=== PATIENT | female | born 1970 | race Caucasian/White ===

== ENCOUNTER 2016-11-21 21:33 | Emergency (ER) | payer MEDICAID ==
[2016-11-21 22:13] VITALS: BP 142/98
[2016-11-21] MEDS ORDERED: cefTRIAXone 1 GM Vial IM ONE (23:11)
[2016-11-21] MEDS ORDERED: Ketorolac 30 MG/ML SDV IM ONE (23:12)
--- NOTE | 2016-11-21 23:18 | EDM.PDOC ---
ED HPI GENERAL MEDICAL PROBLEM - General Chief Complaint: Skin Complaint Stated Complaint: INFECTION Time Seen by Provider: 11/21/16 23:14 Source of Information: Reports: Patient History Limitations: Reports: No Limitations - History of Present Illness INITIAL COMMENTS - FREE TEXT/NARRATIVE: Pt with piercing to her ear several months ago. Took out the piercing last week. Noted sudden swelling and redness to her tragus area yesterday. Went to urgent care and was given Keflex. She feels like swelling has gotten worse. Is taking Ibuprofen, using sea salt soaks to area also. Pain is quite intense. She has noted chills today. 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 Left Ear Pain Score (Numeric/FACES): 6 - Related Data Allergies Allergy/AdvReac Type Severity Reaction Status Date / Time lamotrigine [From Lamictal] Allergy Rash Verified 11/21/16 22:46 Home Meds: Home Meds cloNIDine [Catapres] 0.1 mg PO DAILY 09/29/13 [History] Omeprazole [Prilosec] 40 mg PO DAILY 12/20/13 [History] Venlafaxine HCl [Venlafaxine ER] 150 mg PO DAILY 10/22/15 [History] Cephalexin [Keflex] 500 mg PO QID 11/21/16 [History] Topiramate [Topamax] 50 mg PO DAILY 11/21/16 [History] Past Medical History HEENT History: Reports: Impaired Vision Cardiovascular History: Reports: None Respiratory History: Reports: None Gastrointestinal History: Reports: GERD Genitourinary History: Reports: None TECHNICAL LEAD History: Reports: , Spontaneous Musculoskeletal History: Reports: None Neurological History: Reports: None Psychiatric History: Reports: Anxiety, Bipolar, Depression Endocrine/Metabolic History: Reports: None Hematologic History: Reports: None Immunologic History: Reports: None Oncologic (Cancer) History: Reports: None Dermatologic History: Reports: Psoriasis - Infectious Disease History Infectious Disease History: Reports: Chicken Pox - Past Surgical History HEENT Surgical History: Reports: None Cardiovascular Surgical History: Reports: None Respiratory Surgical History: Reports: None GI Surgical History: Reports: None Female Surgical History: Reports: D&C, Hysterectomy Endocrine Surgical History: Reports: None Neurological Surgical History: Reports: None Musculoskeletal Surgical History: Reports: Arthroscopic Knee, Arthroscopic Procedure, Shoulder Surgery Oncologic Surgical History: Reports: None Dermatological Surgical History: Reports: None Social & Family History - Family History Family Medical History: Noncontributory - Tobacco Use Smoking Status *Q: Current Every Day Smoker Years of Tobacco use: 30 Packs/Tins Daily: 0.5 Used Tobacco, but Quit: No Second Hand Smoke Exposure: No - Caffeine Use Caffeine Use: Reports: Coffee, Tea - Alcohol Use Days Per Week of Alcohol Use: 0 - Recreational Drug Use Recreational Drug Use: No ED ROS GENERAL - Review of Systems Review Of Systems: See Below Constitutional: Reports: Chills HEENT: Reports: Ear Pain Respiratory: Reports: No Symptoms Cardiovascular: Reports: No Symptoms Endocrine: Reports: No Symptoms GI/Abdominal: Reports: No Symptoms Musculoskeletal: Reports: No Symptoms Skin: Reports: Other (left ear with redness, swelling and warmth) ED EXAM, SKIN/RASH Exam: See Below Exam Limited By: No Limitations General Appearance: Alert, WD/WN, No Apparent Distress Ears: Other (left tragus region with extreme swelling, redness and warmth, tender to touch) Head: Atraumatic, Normocephalic Neck: Normal Inspection, Supple, Non-Tender, Full Range of Motion Respiratory/Chest: No Respiratory Distress, Lungs Clear, Normal Breath Sounds, No Accessory Muscle Use, Chest Non-Tender Cardiovascular: Normal Peripheral Pulses, Regular Rate, Rhythm, No Edema, No Gallop, No JVD, No Murmur, No Rub Course - Vital Signs Last Recorded V/S: Last Vital Signs Temp 97.5 F 11/21/16 22:11 Pulse 104 H 11/21/16 22:11 Resp 20 11/21/16 22:11 BP 142/98 H 11/21/16 22:11 Pulse Ox 97 11/21/16 22:11 - Orders/Labs/Meds Labs: Laboratory Tests 11/21/16 Range/Units 23:11 WBC 9.7 (4.5-11.0) K/uL RBC 5.02 (3.30-5.50) M/uL Hgb 14.3 D (12.0-15.0) g/dL Hct 41.5 (36.0-48.0) % MCV 83 (80-98) fL MCH 29 (27-31) pg MCHC 35 (32-36) % Plt Count 250 (150-400) K/uL Neut % (Auto) 57 (36-66) % Lymph % (Auto) 31 (24-44) % [place] % (Auto) 9 H (2-6) % Eos % (Auto) 3 (2-4) % Baso % (Auto) 1 (0-1) % Meds: Medications Discontinued Medications Generic Name Dose Route Start Last Admin Trade Name Tez PRN Reason Stop Dose Admin Ceftriaxone Sodium 1 gm 11/21/16 23:11 11/21/16 23:25 Rocephin IM 11/21/16 23:12 1 gm ONETIME ONE Administration Ketorolac Tromethamine 30 mg 11/21/16 23:12 11/21/16 23:22 Toradol IM 11/21/16 23:13 30 mg ONETIME ONE Administration Lidocaine HCl 5 ml 11/21/16 23:12 11/21/16 23:27 Xylocaine-Mpf 1% INJECT 11/21/16 23:13 5 ml ONETIME ONE Administration Departure - Departure Time of Disposition: 23:29 Disposition: Home, Self-Care 01 Condition: Good Clinical Impression: Cellulitis of helix of left ear - Discharge Information Referrals: Lori Pham THREADER [Primary Care Provider] - Forms: ED Department Discharge Additional Instructions: CBC WNL. Rocephin 1gm IM given. Ketorolac 30mg IM given. Pt to increase heat to area as most likely it will rupture and drain soon. To continue Ibuprofen as needed for pain. Will switch to Bactrim DS 1 tab BID x 10 days to rule out resistant infection. Pt to stop Keflex. Followup if spikes a fever or with worsening symptoms. - Problem List & Annotations (1) Cellulitis of helix of left ear SNOMED Code(s): 02908328 Code(s): H60.12 - CELLULITIS OF LEFT EXTERNAL EAR Status: Acute Priority : Medium Current Visit: Yes
== END 2016-11-21 23:47 | disposition home or self-care (01) ==
LOC: JP.ED 21:33
DX: H60.12 Cellulitis of left external ear (principal); F17.210 Nicotine dependence, cigarettes, uncomplicated; K21.9 Gastro-esophageal reflux disease without esophagitis; F31.9 Bipolar disorder, unspecified; F41.9 Anxiety disorder, unspecified; Z98.890 Other specified postprocedural states; Z90.710 Acquired absence of both cervix and uterus; Z79.899 Other long term (current) drug therapy; Z88.8 Allergy status to other drugs, medicaments and biological substances
CPT/HCPCS: 36415; 85025; 96372; 99282; J0696; J1885

== ENCOUNTER 2020-11-12 20:25 | Inpatient (IN) | payer MEDICAID ==
--- NOTE | 2020-11-12 20:42 | EDM.PDOC ---
ED HPI GENERAL MEDICAL PROBLEM - General Chief Complaint: Abdominal Pain Stated Complaint: MEDICAL VIA [facility] Time Seen by Provider: 11/12/20 20:32 Source of Information: Reports: Patient, EMS History Limitations: Reports: No Limitations - History of Present Illness INITIAL COMMENTS - FREE TEXT/NARRATIVE: Bridgette is a 50-year-old female presenting to the ED for evaluation of severe periumbilical abdominal pain for 2 hours after eating [employer] in [place], [place] around 530 today. Patient has some nausea but denies any vomiting. She has severe unrelenting pain radiating through to the back. She still has her gallbladder. She does not know her past medical family history because she was adopted. Patient states that she was having chills, diaphoresis, severe abdominal cramping but denies any diarrhea or constipation. She has had previous episodes of abdominal pain but they have not been able to find a source. umbilical abd pain Pain Score (Numeric/FACES): 7 - Related Data Allergies Allergy/AdvReac Type Severity Reaction Status Date / Time lamotrigine [From Lamictal] Allergy Rash Verified 11/12/20 20:58 Home Meds: Home Meds cloNIDine [Catapres] 0.1 mg PO DAILY 09/29/13 [History] Omeprazole [Prilosec] 40 mg PO DAILY 12/20/13 [History] Venlafaxine HCl [Venlafaxine ER] 150 mg PO DAILY 10/22/15 [History] Past Medical History HEENT History: Reports: Impaired Vision Cardiovascular History: Reports: None Respiratory History: Reports: None Gastrointestinal History: Reports: GERD Genitourinary History: Reports: None 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: , 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 Musculoskeletal History: Reports: None Neurological History: Reports: None Psychiatric History: Reports: Anxiety, Bipolar, Depression Endocrine/Metabolic History: Reports: None Hematologic History: Reports: None Immunologic History: Reports: None Oncologic (Cancer) History: Reports: None Dermatologic History: Reports: Psoriasis - Infectious Disease History Infectious Disease History: Reports: Chicken Pox - Past Surgical History HEENT Surgical History: Reports: None Cardiovascular Surgical History: Reports: None Respiratory Surgical History: Reports: None GI Surgical History: Reports: None Female Surgical History: Reports: D&C, Hysterectomy Endocrine Surgical History: Reports: None Neurological Surgical History: Reports: None Musculoskeletal Surgical History: Reports: Arthroscopic Knee, Arthroscopic Procedure, Shoulder Surgery Oncologic Surgical History: Reports: None Dermatological Surgical History: Reports: None Social & Family History - Family History Family Medical History: No Pertinent Family History - Caffeine Use Caffeine Use: Reports: Coffee, Tea ED ROS GENERAL - Review of Systems Review Of Systems: See Below Constitutional: Reports: Chills, Diaphoresis HEENT: Reports: No Symptoms Respiratory: Reports: No Symptoms Cardiovascular: Reports: No Symptoms Endocrine: Reports: No Symptoms GI/Abdominal: Reports: Abdominal Pain, Nausea : Reports: No Symptoms Musculoskeletal: Reports: Back Pain Skin: Reports: No Symptoms Neurological: Reports: No Symptoms Psychiatric: Reports: No Symptoms Hematologic/Lymphatic: Reports: No Symptoms Immunologic: Reports: No Symptoms ED EXAM, GI/ABD - Physical Exam Exam: See Below Exam Limited By: No Limitations General Appearance: Alert, Anxious, Severe Distress Eyes: Bilateral: EOMI Throat/Mouth: Normal Inspection, Normal Lips, Normal Oropharynx, Normal Voice, No Airway Compromise Head: Atraumatic, Normocephalic Neck: Normal Inspection, Supple, Non-Tender, Full Range of Motion Respiratory/Chest: No Respiratory Distress, Lungs Clear, Normal Breath Sounds Cardiovascular: Normal Peripheral Pulses, Regular Rate, Rhythm, No Murmur GI/Abdominal Exam: Soft, No Distention, Guarding, Rebound, Tender (Severe diffuse tenderness), Abnormal Bowel Sounds (Diminished bowel sounds). No: Rigid Back Exam: Normal Inspection, Full Range of Motion Extremities: Normal Inspection, Normal Range of Motion Neurological: Alert, Oriented, Normal Cognition, No Motor/Sensory Deficits Psychiatric: Normal Affect, Anxious Skin Exam: Warm, Dry, Diaphoretic Lymphatic: No Adenopathy Course - Vital Signs Last Recorded V/S: Last Vital Signs Temp 36.2 C 11/12/20 21:10 Pulse 69 11/12/20 21:10 Resp 18 11/12/20 21:10 BP 128/86 11/12/20 21:10 Pulse Ox 99 11/12/20 21:10 - Orders/Labs/Meds Orders: Active Orders 24 hr Category Date Time Status Sodium Chloride 0.9% [Normal Saline] 1,000 ml Med 11/12/20 21:00 Active IV ASDIRECTED Sodium Chloride 0.9% [Normal Saline] 89 ml Med 11/12/20 22:15 Active IV ASDIRECTED Sodium Chloride 0.9% [Saline Flush] Med 11/12/20 20:47 Active 10 ml FLUSH ASDIRECTED PRN Saline Lock Insert [OM.PC] Routine Oth 11/12/20 20:47 Ordered Medication Orders Sodium Chloride (Normal Saline) 1,000 mls @ 999 mls/hr IV ASDIRECTED LIMA Last Admin: 11/12/20 21:02 Dose: 999 mls/hr Documented by: ALEXANDRE Sodium Chloride (Normal Saline) 89 mls @ 3.5 mls/sec IV ASDIRECTED LIMA Last Admin: 11/12/20 22:18 Dose: 3.5 mls/sec Documented by: BUSTER Sodium Chloride (Sodium Chloride 0.9% 10 Ml Syringe) 10 ml FLUSH ASDIRECTED PRN PRN Reason: Keep Vein Open Last Admin: 11/12/20 20:57 Dose: 10 ml Documented by: ALEXANDRE Labs: Laboratory Tests 11/12/20 11/12/20 Range/Units 20:58 20:58 WBC 26.0 H (4.5-11.0) K/uL RBC 5.84 H (3.30-5.50) M/uL Hgb 15.8 H (12.0-15.0) g/dL Hct 47.7 (36.0-48.0) % MCV 82 (80-98) fL MCH 27 (27-31) pg MCHC 33 (32-36) % Plt Count 356 (150-400) K/uL Neut % (Auto) 80.0 H (36-66) % Lymph % (Auto) 13.1 L (24-44) % [place] % (Auto) 6.0 (2-6) % Eos % (Auto) 0.7 L (2-4) % Baso % (Auto) 0.2 (0-1) % Sodium 140 (140-148) mmol/L Potassium 4.0 (3.6-5.2) mmol/L Chloride 102 (100-108) mmol/L Carbon Dioxide 28 (21-32) mmol/L Anion Gap 9.8 (5.0-14.0) mmol/L BUN 14 (7-18) mg/dL Creatinine 1.0 (0.6-1.0) mg/dL Est Cr Clr Drug Dosing 56.91 mL/min Estimated GFR (MDRD) 59 L (>60) Glucose 183 H (74-106) mg/dL Calcium 9.1 (8.5-10.1) mg/dL Total Bilirubin 0.6 D (0.2-1.0) mg/dL AST 23 (15-37) U/L ALT 44 (12-78) U/L Alkaline Phosphatase 137 H (46-116) U/L Total Protein 7.0 (6.4-8.2) g/dL Albumin 3.6 (3.4-5.0) g/dL Globulin 3.4 (2.3-3.5) g/dL Albumin/Globulin Ratio 1.1 L (1.2-2.2) Lipase 67047 H (73-393) U/L Meds: Medications Generic Name Dose Route Start Last Admin Trade Name Tez PRN Reason Stop Dose Admin Sodium Chloride 1,000 mls @ 999 mls/hr 11/12/20 21:00 11/12/20 21:02 Normal Saline IV 999 mls/hr ASDIRECTED LIMA Administration Sodium Chloride 89 mls @ 3.5 mls/sec 11/12/20 22:15 11/12/20 22:18 Normal Saline IV 3.5 mls/sec ASDIRECTED LIMA Administration Sodium Chloride 10 ml 11/12/20 20:47 11/12/20 20:57 Sodium Chloride 0.9% 10 Ml Syringe FLUSH 10 ml ASDIRECTED PRN Administration Keep Vein Open Discontinued Medications Generic Name Dose Route Start Last Admin Trade Name Tez PRN Reason Stop Dose Admin Hydromorphone HCl 1 mg 11/12/20 21:50 11/12/20 21:56 Hydromorphone 1 Mg/Ml Syringe IVPUSH 11/12/20 21:51 1 mg ONETIME ONE Administration Hydromorphone HCl 0.5 mg 11/12/20 22:24 Hydromorphone 0.5 Mg/0.5 Ml Syringe IVPUSH 11/12/20 22:25 ONETIME ONE Iopamidol 150 ml 11/12/20 22:05 11/12/20 22:18 Iopamidol 612 Mg/Ml 500 Ml Multipack Bottle IV 11/12/20 22:06 150 ml ONETIME ONE Administration Ketorolac Tromethamine 30 mg 11/12/20 20:47 11/12/20 21:02 Ketorolac 30 Mg/Ml Sdv IVPUSH 11/12/20 20:48 30 mg ONETIME ONE Administration Ondansetron HCl 4 mg 11/12/20 20:47 11/12/20 21:02 Ondansetron 4 Mg/2 Ml Sdv IVPUSH 11/12/20 20:48 4 mg ONETIME ONE Administration Ondansetron HCl 4 mg 11/12/20 22:43 Ondansetron 4 Mg/2 Ml Sdv IVPUSH 11/12/20 22:44 ONETIME ONE Sodium Chloride 10 ml 11/12/20 22:05 11/12/20 22:18 Sodium Chloride 0.9% 10 Ml Syringe FLUSH 11/12/20 22:06 10 ml ONETIME ONE Administration - Radiology Interpretation Free Text/Narrative:: I reviewed the CT of the abdomen and pelvis imaging and the report: There is moderate retroperitoneal edema present in the upper abdomen surrounding the pancreas, duodenum, and gastric antrum. This fluid extends anteriorly into the transverse mesocolon. Finding most likely consistent with pancreatitis. There is mild wall thickening of the stomach present which may be due to secondary inflammatory changes from the suspected pancreatitis. - Re-Assessments/Exams Free Text/Narrative Re-Assessment/Exam: 11/12/20 22:36 reviewed the patient's labs showing a leukocyte count of 26.0 with 80% neutrophils, hemoglobin of 15.8 with a hematocrit of 47.7 and a platelet count of 356,000. Her comprehensive metabolic panel is significant for sodium 140, potassium 4.0, chloride of 102, bicarbonate of 28, BUN of 14 with a creatinine 1.0 and a glucose of 183. Calcium is 9.1, total bili is 0.6, AST is 23 with an ALT of 44 and alkaline phosphatase of 137. [place] [address]. The patient underwent a CT of the abdomen and pelvis with IV contrast demonstrating severe inflammation of the pancreas with free fluid and inflammation throughout the upper abdomen. Patient is required a fair amount of Dilaudid to get her pain under control. It is likely that this is idiopathic pancreatitis as her liver enzymes and total bilirubin are negative. There is no sign for stones on the CT of the abdomen and pelvis. More worrisome is the significant leukocytosis of 26,000 with a left shift. 11/12/20 22:[address] of the abdomen and pelvis shows moderate retroperitoneal edema present in the upper abdomen surrounding the pancreas, duodenum, gastric antrum with the fluid extending anteriorly into the transverse mesocolon. This is consistent with an acute pancreatitis. The patient will need continued IV hydration and pain control. I will arrange for her to be admitted to the hospital. I will talk to Kaye Perez CNP to arrange for this admission. Departure - Departure Time of Disposition: 22:53 Disposition: Admitted As Inpatient 68 Clinical Impression: Acute pancreatitis Qualifiers: Pancreatitis type: idiopathic Acute pancreatitis complication: unspecified Qualified Code(s): K85.00 - Idiopathic acute pancreatitis without necrosis or infection - Discharge Information Referrals: PCP,None [Primary Care Provider] - Forms: ED Department Discharge Sepsis Event Note (ED) - Focused Exam Vital Signs: Vital Signs Temp Pulse Resp BP Pulse Ox 11/12/20 21:10 36.2 C 69 18 128/86 99 - Problem List & Annotations (1) Acute pancreatitis SNOMED Code(s): 701347718 Code(s): K85.90 - ACUTE PANCREATITIS WITHOUT NECROSIS OR INFECTION, UNSP Status: Acute Priority: High Current Visit: Yes Qualifiers: Pancreatitis type: idiopathic Acute pancreatitis complication: unspecified Qualified Code(s): K85.00 - Idiopathic acute pancreatitis without necrosis or infection - Problem List Review Problem List Initiated/Reviewed/Updated: Yes - My Orders Last 24 Hours: My Active Orders 11/12/20 20:47 Sodium Chloride 0.9% [Saline Flush] 10 ml FLUSH ASDIRECTED PRN Saline Lock Insert [OM.PC] Routine 11/12/20 21:00 Sodium Chloride 0.9% [Normal Saline] 1,000 ml IV ASDIRECTED 11/12/20 22:15 Sodium Chloride 0.9% [Normal Saline] 89 ml IV ASDIRECTED - Assessment/Plan Last 24 Hours: My Active Orders 11/12/20 20:47 Sodium Chloride 0.9% [Saline Flush] 10 ml FLUSH ASDIRECTED PRN Saline Lock Insert [OM.PC] Routine 11/12/20 21:00 Sodium Chloride 0.9% [Normal Saline] 1,000 ml IV ASDIRECTED 11/12/20 22:15 Sodium Chloride 0.9% [Normal Saline] 89 ml IV ASDIRECTED
[2020-11-12] MEDS ORDERED: Ondansetron 4 MG/2 ML SDV IVPUSH ONE ×2 (20:47→22:43)
[2020-11-12] MEDS ORDERED: Ketorolac 30 MG/ML SDV IVPUSH ONE (20:47)
[2020-11-12] MEDS ORDERED: Sodium Chloride 0.9% 10 ML Syringe FLUSH PRN (20:47)
[2020-11-12] MEDS ORDERED: Sodium Chloride 0.9% 1,000 ML IV SCH (21:00)
[2020-11-12] MEDS ORDERED: HYDROmorphone 1 MG/ML Syringe IVPUSH ONE (21:50)
[2020-11-12] MEDS ORDERED: Iopamidol 612 MG/ML 500 ML Multipack Bottle IV ONE (22:05)
[2020-11-12] MEDS ORDERED: Sodium Chloride 0.9% 10 ML Syringe FLUSH ONE (22:05)
[2020-11-12] MEDS ORDERED: HYDROmorphone 0.5 MG/0.5 ML Syringe IVPUSH ONE (22:24)
--- NOTE | 2020-11-12 22:49 | CRLCT ---
For Patients: As a result of the Century Cures Act, medical imaging exams and procedure reports are released immediately into your electronic medical record. You may view this report before your referring provider. If you have questions, please contact your health care provider. INDICATION: Abdominal pain TECHNIQUE: CT Abdomen and pelvis with i.v. contrast. Coronal and sagittal reformats were obtained. CONTRAST: 150 mL Isovue 300 COMPARISON: None FINDINGS: Lower chest: Unremarkable. Liver: Unremarkable. Spleen: Unremarkable. Pancreas: No pancreatic necrosis is seen. Gallbladder: Unremarkable. Kidney: Unremarkable. No kidney or ureteral stones or obstruction seen. Adrenal: Unremarkable. Bowel: Mild wall thickening of the stomach is present and may be due to secondary inflammatory changes from suspected pancreatitis. Mild to moderate fluid distention of the stomach is noted. The appendix is normal in appearance and size. Vascular: Unremarkable. Lymph: Unremarkable. Peritoneum: Moderate retroperitoneal edema is present in the upper abdomen surrounding the pancreas, duodenum and gastric antrum. This fluid extends anteriorly into the transverse mesocolon. No pneumoperitoneum is seen. No significant ascites is noted. Pelvis: The patient is status post prior hysterectomy. There is a cyst or follicle present within the left ovary measuring 1.7 cm. Soft tissue: Unremarkable. Bone: Unremarkable for age. IMPRESSIONS: 1. Moderate retroperitoneal edema is present in the upper abdomen surrounding the pancreas, duodenum and gastric antrum. This fluid extends anteriorly into the transverse mesocolon. Findings most likely due to pancreatitis and correlation with serum amylase and lipase levels is recommended. 2. Mild wall thickening of the stomach is present and may be due to secondary inflammatory changes from suspected pancreatitis. Gastritis or peptic ulcer disease cannot be completely excluded. Dictated by Tanner Lopez MD @ 11/12/2020 10:48:07 PM Please note that all CT scans at this facility use dose modulation, iterative reconstruction, and/or weight-based dosing when appropriate to reduce radiation dose to as low as reasonably achievable. Dictated by: Tanner Lopez MD @ 11/12/2020 22:48:13 (Electronically Signed)
[2020-11-12] MEDS: Sodium Chloride 0.9% 1,000 ML IV SCH (23:01)
--- NOTE | 2020-11-12 23:54 | PCM.HP.2 ---
H&P History of Present Illness - General Date of Service: 11/12/20 Admit Problem/Dx: Admission Diagnosis/Problem Admission Diagnosis/Problem Pancreatitis Source of Information: Patient, EMS, Family, Provider, RN History Limitations: Reports: No Limitations - History of Present Illness Initial Comments - Free Text/Narative: Chief complaint: abdominal pain This is a 50 year old female presents to the ER via ambulance with sudden onset of spasm of sharp in abdomen at 5 pm. Bridgette reports she had been well until eating a [employer] at 4 pm. reports sharp pain coming in waves. denies any other health concerns denies use of drugs or alcohol tobacco use 1/2 pack per day x30+ years. Onset of Symptoms: Reports: Today, Sudden Symptom Onset Date: 11/12/20 Symptom Onset Time: 17:00 Duration of Symptoms: Reports: Hour(s):, Waxing/Waning Location: Reports: Abdomen, Radiates to (mid to lower back pain) Quality: Reports: Sharp, Other (pain feels like muscle spasms) Improves with: Reports: Medication Worsens with: Reports: None Associated Symptoms: Reports: Loss of Appetite, Nausea/Vomiting umbilical abd pain Pain Score (Numeric/FACES): 7 - Related Data Allergies/Adverse Reactions: Allergies Allergy/AdvReac Type Severity Reaction Status Date / Time lamotrigine [From Lamictal] Allergy Rash Verified 11/12/20 20:58 Home Medications: Home Meds cloNIDine [Catapres] 0.1 mg PO DAILY 09/29/13 [History] Omeprazole [Prilosec] 40 mg PO DAILY 12/20/13 [History] Venlafaxine HCl [Venlafaxine ER] 150 mg PO DAILY 10/22/15 [History] Past Medical History HEENT History: Reports: Impaired Vision Cardiovascular History: Reports: None Respiratory History: Reports: None Gastrointestinal History: Reports: GERD Genitourinary History: Reports: None [employer] History: Reports: , Spontaneous Musculoskeletal History: Reports: None Neurological History: Reports: Headaches, Chronic Psychiatric History: Reports: Anxiety, Bipolar, Depression Endocrine/Metabolic History: Reports: Obesity/BMI 30+ Hematologic History: Reports: None Immunologic History: Reports: None Oncologic (Cancer) History: Reports: None Dermatologic History: Reports: Psoriasis - Infectious Disease History Infectious Disease History: Reports: Chicken Pox - Past Surgical History HEENT Surgical History: Reports: None GI Surgical History: Reports: None Female Surgical History: Reports: D&C, Hysterectomy Endocrine Surgical History: Reports: None Neurological Surgical History: Reports: None Musculoskeletal Surgical History: Reports: Arthroscopic Knee, Arthroscopic Procedure, Shoulder Surgery Oncologic Surgical History: Reports: None Dermatological Surgical History: Reports: None Social & Family History - Family History Family Medical History: No Pertinent Family History - Tobacco Use Tobacco Use Status *Q: Current Every Day Tobacco User Years of Tobacco use: 30 Packs/Tins Daily: 0.5 - Caffeine Use Caffeine Use: Reports: Coffee - Recreational Drug Use Recreational Drug Use: No - Living Situation & Occupation Living situation: Reports: with Significant Other (Lives with JUANITA Duenas, has 4 children.) Occupation: Unemployed H&P Review of Systems - Review of Systems: Review Of Systems: See Below General: Reports: Decreased Appetite, Other (acute abdominal pain) HEENT: Reports: Glasses Pulmonary: Reports: No Symptoms Cardiovascular: Reports: No Symptoms Gastrointestinal: Reports: Abdominal Pain, Nausea Genitourinary: Reports: No Symptoms Musculoskeletal: Reports: Back Pain Skin: Reports: No Symptoms Psychiatric: Reports: Depression (history of depression-treated with medications) Neurological: Reports: No Symptoms, Headache (history of migraine headaches, none at this time) Hematologic/Lymphatic: Reports: No Symptoms Immunologic: Reports: No Symptoms Exam - Exam Exam: See Below - Vital Signs Vital Signs: Last Vital Signs Temp 97.2 F 11/12/20 21:10 Pulse 69 11/12/20 21:10 Resp 18 11/12/20 21:10 BP 128/86 11/12/20 21:10 Pulse Ox 99 11/12/20 21:10 Weight: 280 lb - Exam Quality Assessment: DVT Prophylaxis General: Alert, Oriented, Cooperative, Mild Distress HEENT: PERRLA, Conjunctiva Clear, EACs Clear, EOMI, Hearing Intact, Mucosa Moist & [employer], Nares Patent, Normal Nasal Septum, Posterior Pharynx Clear, TMs Clear, Glasses Neck: Supple, Trachea Midline, Full Range of Motion Lungs: Clear to Auscultation, Normal Respiratory Effort Cardiovascular: Regular Rate, Regular Rhythm GI/Abdominal Exam: Normal Bowel Sounds, Soft, Tender (generalized tenderness) (Female) Exam: Deferred Rectal (Female) Exam: Deferred Back Exam: Normal Inspection Extremities: Normal Inspection, Normal Range of Motion, Non-Tender, No Pedal Edema, Normal Capillary Refill Peripheral Pulses: 2+: Brachial (R), Radial (L), Dorsalis Pedis (L), Dorsalis Pedis (R) Skin: Warm, Dry, Intact Neurological: Cranial Nerves Intact, Reflexes Equal Bilateral Neuro Extensive - Mental Status: Alert, Oriented x3, Normal Mood/Affect, Normal Cognition Neuro Extensive - Motor, Sensory, Reflexes: Normal Gait Psychiatric: Alert, Normal Affect, Normal Mood - Patient Data Lab Results Last 24 hrs: Laboratory Results - last 24 hr 11/12/20 11/12/20 11/12/20 Range/Units 20:56 20:58 20:58 WBC 26.0 H (4.5-11.0) K/uL RBC 5.84 H (3.30-5.50) M/uL Hgb 15.8 H (12.0-15.0) g/dL Hct 47.7 (36.0-48.0) % MCV 82 (80-98) fL MCH 27 (27-31) pg MCHC 33 (32-36) % Plt Count 356 (150-400) K/uL Neut % (Auto) 80.0 H (36-66) % Lymph % (Auto) 13.1 L (24-44) % [place] % (Auto) 6.0 (2-6) % Eos % (Auto) 0.7 L (2-4) % Baso % (Auto) 0.2 (0-1) % Sodium 140 (140-148) mmol/L Potassium 4.0 (3.6-5.2) mmol/L Chloride 102 (100-108) mmol/L Carbon Dioxide 28 (21-32) mmol/L Anion Gap 9.8 (5.0-14.0) mmol/L BUN 14 (7-18) mg/dL Creatinine 1.0 (0.6-1.0) mg/dL Est Cr Clr Drug Dosing 56.91 mL/min Estimated GFR (MDRD) 59 L (>60) Glucose 183 H (74-106) mg/dL Calcium 9.1 (8.5-10.1) mg/dL Total Bilirubin 0.6 D (0.2-1.0) mg/dL AST 23 (15-37) U/L ALT 44 (12-78) U/L Alkaline Phosphatase 137 H (46-116) U/L Total Protein 7.0 (6.4-8.2) g/dL Albumin 3.6 (3.4-5.0) g/dL Globulin 3.4 (2.3-3.5) g/dL Albumin/Globulin Ratio 1.1 L (1.2-2.2) Amylase 3192 H (25-115) U/L Lipase 37715 H (73-393) U/L Urine Color (YELLOW) Urine Appearance (CLEAR) Urine pH (5.0-8.0) Ur Specific Coleman (1.008-1.030) Urine Protein (NEGATIVE) mg/dL Urine Glucose (UA) (NEGATIVE) mg/dL Urine Ketones (NEGATIVE) mg/dL Urine Occult Blood (NEGATIVE) Urine Nitrite (NEGATIVE) Urine Bilirubin (NEGATIVE) Urine Urobilinogen (0.2-1.0) EU/dL Ur Leukocyte Esterase (NEGATIVE) Urine RBC (0-5) Urine WBC (0-5) Ur Epithelial Cells Amorphous Sediment Urine Bacteria Urine Mucus 11/12/20 Range/Units 23:13 WBC (4.5-11.0) K/uL RBC (3.30-5.50) M/uL Hgb (12.0-15.0) g/dL Hct (36.0-48.0) % MCV (80-98) fL MCH (27-31) pg MCHC (32-36) % Plt Count (150-400) K/uL Neut % (Auto) (36-66) % Lymph % (Auto) (24-44) % [place] % (Auto) (2-6) % Eos % (Auto) (2-4) % Baso % (Auto) (0-1) % Sodium (140-148) mmol/L Potassium (3.6-5.2) mmol/L Chloride (100-108) mmol/L Carbon Dioxide (21-32) mmol/L Anion Gap (5.0-14.0) mmol/L BUN (7-18) mg/dL Creatinine (0.6-1.0) mg/dL Est Cr Clr Drug Dosing mL/min Estimated GFR (MDRD) (>60) Glucose (74-106) mg/dL Calcium (8.5-10.1) mg/dL Total Bilirubin (0.2-1.0) mg/dL AST (15-37) U/L ALT (12-78) U/L Alkaline Phosphatase (46-116) U/L Total Protein (6.4-8.2) g/dL Albumin (3.4-5.0) g/dL Globulin (2.3-3.5) g/dL Albumin/Globulin Ratio (1.2-2.2) Amylase (25-115) U/L Lipase (73-393) U/L Urine Color Yellow (YELLOW) Urine Appearance Clear (CLEAR) Urine pH 6.5 (5.0-8.0) Ur Specific Coleman 1.015 (1.008-1.030) Urine Protein Negative (NEGATIVE) mg/dL Urine Glucose (UA) 100 H (NEGATIVE) mg/dL Urine Ketones 15 H (NEGATIVE) mg/dL Urine Occult Blood Negative (NEGATIVE) Urine Nitrite Negative (NEGATIVE) Urine Bilirubin Negative (NEGATIVE) Urine Urobilinogen 0.2 (0.2-1.0) EU/dL Ur Leukocyte Esterase Negative (NEGATIVE) Urine RBC 0-5 (0-5) Urine WBC 0-5 (0-5) Ur Epithelial Cells Rare Amorphous Sediment Not seen Urine Bacteria Rare Urine Mucus Not seen Result Diagrams: 11/12/20 20:58 11/12/20 20:58 Sepsis Event Note - Focused Exam Vital Signs: Vital Signs Temp Pulse Resp BP Pulse Ox 11/12/20 21:10 97.2 F 69 18 128/86 99 - Problem List (1) Acute pancreatitis SNOMED Code(s): 992026928 ICD Code: K85.90 - ACUTE PANCREATITIS WITHOUT NECROSIS OR INFECTION, UNSP Status: Acute Priority: High Current Visit: Yes Qualifiers: Pancreatitis type: idiopathic Acute pancreatitis complication: unspecified Qualified Code(s): K85.00 - Idiopathic acute pancreatitis without necrosis or infection (2) Depression SNOMED Code(s): 26535224 ICD Code: F32.9 - MAJOR DEPRESSIVE DISORDER, SINGLE EPISODE, UNSPECIFIED Status: Acute Priority: Low Current Visit: Yes Qualifiers: Depression Type: unspecified Qualified Code(s): F32.9 - Major depressive disorder, single episode, unspecified (3) Hypercholesteremia SNOMED Code(s): 38376624 ICD Code: E78.00 - PURE HYPERCHOLESTEROLEMIA, UNSPECIFIED Status: Acute Priority: Low Current Visit: Yes (4) Tobacco dependence SNOMED Code(s): 33370416 ICD Code: F17.200 - NICOTINE DEPENDENCE, UNSPECIFIED, UNCOMPLICATED Status: Acute Current Visit: Yes Problem List Initiated/Reviewed/Updated: Yes Orders Last 24hrs: Active Orders 24 hr Category Date Time Status Patient Status Manage Transfer [TRANSFER] Routine ADT 11/12/20 23:26 Ordered Sodium Chloride 0.9% [Normal Saline] 1,000 ml Med 11/12/20 21:00 Active IV ASDIRECTED Sodium Chloride 0.9% [Normal Saline] 1,000 ml Med 11/12/20 23:00 Active IV ASDIRECTED Sodium Chloride 0.9% [Normal Saline] 89 ml Med 11/12/20 22:15 Active IV ASDIRECTED Sodium Chloride 0.9% [Saline Flush] Med 11/12/20 20:47 Active 10 ml FLUSH ASDIRECTED PRN Saline Lock Insert [OM.PC] Routine Oth 11/12/20 20:47 Ordered Resuscitation Status Routine Resus Stat 11/12/20 23:29 Ordered Medication Orders Sodium Chloride (Normal Saline) 1,000 mls @ 999 mls/hr IV ASDIRECTED [facility] Last Admin: 11/12/20 21:02 Dose: 999 mls/hr Documented by: ALEXANDRE Sodium Chloride (Normal Saline) 89 mls @ 3.5 mls/sec IV ASDIRECTED [facility] Last Admin: 11/12/20 22:18 Dose: 3.5 mls/sec Documented by: BUSTER Sodium Chloride (Normal Saline) 1,000 mls @ 150 mls/hr IV ASDIRECTED [facility] Last Admin: 11/12/20 23:01 Dose: 150 mls/hr Documented by: JENNYMEL Sodium Chloride (Sodium Chloride 0.9% 10 Ml Syringe) 10 ml FLUSH ASDIRECTED PRN PRN Reason: Keep Vein Open Last Admin: 11/12/20 20:57 Dose: 10 ml Documented by: ALEXANDRE Assessment/Plan Comment:: Assessment/Plan Comment:: ASSESSMENT AND PLAN - PANCREATITIS- unknown cause, denies drug or alcohol use. Sudden onset acute severe abdominal pain at 5 pm today after eating [employer] at 4 pm. Labs CBC wbc 26.0 hemoglobin 15.8, hemocrit 47.7, Chemistries normal range, urine with micro +ketones +glucose,CRP, Procalcitonin, Lactic acide pending, Amylase pending, Lipase [id number]. Imaging - CT abdomen-pelvis - impression acute pancreatitis see full report- No sign of biliary ductal dilatation, cholelithiasis or acute cholecystitis. Will plan to admit for further care and treatment. Vital signs 97.2-69-18 b/p 128/86 o2 sat 99% room air. Ms. Mcgovern and her Boyfriend Henrique, agree with plan of care. -IV fluids Normal Saline 150 ml/hr -IV pain and nausea medications -NPO -Am Labs cbc with diff, BMP, Lipase Depression - no concerns at this time. Medication controls symptoms. -Venlafaxine ER 150 mg po daily -Clonidine 0.1 mg daily in am Hypercholesteremia -hold Atorvastatin Maintenance issues - - DVT prophylaxis - enoxaparin - GI prophylaxis - PPI - Nutrition - regular - Med[place] catheter - not indicated -Nicotine dependence - 1/2 pack for 30+ years- declines gum or patch CODE STATUS - full Admission justification - This patient will be admitted for inpatient services and is medically appropriate meeting medical necessity for inpatient admission as outlined in my documentation. I reasonably expect the patient will require inpatient services that span a period time over 2 midnights. I reasonably expect this patient to be discharged or transferred within 96 hours [facility]. Disposition - anticipate discharge home after the hospital stay Primary care physician - Dr. Tarsha Choudhury-[facility], [facility] and Lori Holland NP, [facility], [place], [place] Hospitalist - Miguel Whitlock M.D. - Mortality Measure Prognosis:: Good - Mortality Measure Prognosis:: Good
[2020-11-13] MEDS ORDERED: HYDROmorphone 1 MG/ML Syringe IVPUSH ONE ×2 (00:16→09:48)
[2020-11-13] MEDS ORDERED: HYDROmorphone/Normal Saline 15 MG/30 ML PCA IV PRN (00:20)
[2020-11-13] MEDS ORDERED: oxyCODONE 5 MG Tab PO PRN (00:20)
[2020-11-13] MEDS ORDERED: Albuterol 0.083% 2.5 MG/3 ML Neb Soln NEB PRN (00:20)
[2020-11-13] MEDS ORDERED: Acetaminophen 325 MG Tab PO PRN (00:20)
[2020-11-13] MEDS ORDERED: Naloxone 0.4 MG/ML SDV IVPUSH PRN (00:20)
[2020-11-13] MEDS: LORazepam 2 MG/ML SDV IV PRN ×2 (01:24→07:34)
[2020-11-13] MEDS: Sodium Chloride 0.9% 1,000 ML IV SCH ×2 (01:53→09:02)
[2020-11-13] MEDS: metroNIDAZOLE/Normal Saline 500 MG in Premix Bag 1 BAG IV SCH ×3 (01:54→17:46)
[2020-11-13] MEDS: Ondansetron 4 MG/2 ML SDV IV PRN ×3 (03:17→09:17)
[2020-11-13 06:32] LABS: HEMOGLOBIN A1C 6.9 % (4.5-6.2)
[2020-11-13] MEDS: Venlafaxine 75 MG Cap.ER PO SCH (09:17)
[2020-11-13] MEDS: Pantoprazole 40 MG Vial IV SCH (09:17)
[2020-11-13] MEDS: cloNIDine 0.1 MG Tab PO SCH (09:18)
--- NOTE | 2020-11-13 09:51 | PCM.PN ---
- General Info Date of Service: 11/13/20 Subjective Update: No acute events overnight since admission. Patient reports persistent and essentially unchanged pain as well as nausea. She describes moderately severe pain in the upper abdomen. She has had mild relief from pain medications but it has not been lasting. She has nearly persistent nausea. No vomiting. No fevers. White count is down to 16,000. Lipase has improved to about 6000. Functional Status: Denies: Pain Controlled - Review of Systems General: Denies: Fever Gastrointestinal: Reports: Abdominal Pain, Nausea - Patient Data Vitals - Most Recent: Last Vital Signs Temp 35.9 C L 11/13/20 07:00 Pulse 81 11/13/20 07:00 Resp 16 11/13/20 07:00 BP 170/110 H 11/13/20 09:18 Pulse Ox 95 11/13/20 08:00 Weight - Most Recent: 129.5 kg I&O - Last 24 Hours: Intake & Output 11/12/20 11/13/20 11/13/20 22:59 06:59 14:59 Intake Total 1863 Output Total 800 Balance 1063 Lab Results Last 24 Hours: Laboratory Results - last 24 hr 11/12/20 11/12/20 11/12/20 Range/Units 20:56 20:58 20:58 WBC 26.0 H (4.5-11.0) K/uL RBC 5.84 H (3.30-5.50) M/uL Hgb 15.8 H (12.0-15.0) g/dL Hct 47.7 (36.0-48.0) % MCV 82 (80-98) fL MCH 27 (27-31) pg MCHC 33 (32-36) % Plt Count 356 (150-400) K/uL Neut % (Auto) 80.0 H (36-66) % Lymph % (Auto) 13.1 L (24-44) % [place] % (Auto) 6.0 (2-6) % Eos % (Auto) 0.7 L (2-4) % Baso % (Auto) 0.2 (0-1) % Sodium 140 (140-148) mmol/L Potassium 4.0 (3.6-5.2) mmol/L Chloride 102 (100-108) mmol/L Carbon Dioxide 28 (21-32) mmol/L Anion Gap 9.8 (5.0-14.0) mmol/L BUN 14 (7-18) mg/dL Creatinine 1.0 (0.6-1.0) mg/dL Est Cr Clr Drug Dosing 56.91 mL/min Estimated GFR (MDRD) 59 L (>60) Glucose 183 H (74-106) mg/dL POC Glucose (74-106) mg/dL Hemoglobin A1c (4.5-6.2) % Lactic Acid (0.4-2.0) mmol/L Calcium 9.1 (8.5-10.1) mg/dL Total Bilirubin 0.6 D (0.2-1.0) mg/dL AST 23 (15-37) U/L ALT 44 (12-78) U/L Alkaline Phosphatase 137 H (46-116) U/L C-Reactive Protein (0.0-0.3) mg/dL Total Protein 7.0 (6.4-8.2) g/dL Albumin 3.6 (3.4-5.0) g/dL Globulin 3.4 (2.3-3.5) g/dL Albumin/Globulin Ratio 1.1 L (1.2-2.2) Triglycerides (15-150) mg/dL Amylase 3192 H (25-115) U/L Lipase 18572 H (73-393) U/L Urine Color (YELLOW) Urine Appearance (CLEAR) Urine pH (5.0-8.0) Ur Specific [place] (1.008-1.030) Urine Protein (NEGATIVE) mg/dL Urine Glucose (UA) (NEGATIVE) mg/dL Urine Ketones (NEGATIVE) mg/dL Urine Occult Blood (NEGATIVE) Urine Nitrite (NEGATIVE) Urine Bilirubin (NEGATIVE) Urine Urobilinogen (0.2-1.0) EU/dL Ur Leukocyte Esterase (NEGATIVE) Urine RBC (0-5) Urine WBC (0-5) Ur Epithelial Cells Amorphous Sediment Urine Bacteria Urine Mucus Urine Opiates Screen (NEGATIVE) Ur Oxycodone Screen (NEGATIVE) Urine Methadone Screen (NEGATIVE) Ur Propoxyphene Screen (NEGATIVE) Ur Barbiturates Screen (NEGATIVE) Ur Tricyclics Screen (NEGATIVE) Ur Phencyclidine Scrn (NEGATIVE) Ur Amphetamine Screen (NEGATIVE) U Methamphetamines Scrn (NEGATIVE) Urine MDMA Screen (NEGATIVE) U Benzodiazepines Scrn (NEGATIVE) U Cocaine Metab Screen (NEGATIVE) U Marijuana (THC) Screen (NEGATIVE) 11/12/20 11/12/20 11/12/20 Range/Units 20:58 20:58 23:13 WBC (4.5-11.0) K/uL RBC (3.30-5.50) M/uL Hgb (12.0-15.0) g/dL Hct (36.0-48.0) % MCV (80-98) fL MCH (27-31) pg MCHC (32-36) % Plt Count (150-400) K/uL Neut % (Auto) (36-66) % Lymph % (Auto) (24-44) % [place] % (Auto) (2-6) % Eos % (Auto) (2-4) % Baso % (Auto) (0-1) % Sodium (140-148) mmol/L Potassium (3.6-5.2) mmol/L Chloride (100-108) mmol/L Carbon Dioxide (21-32) mmol/L Anion Gap (5.0-14.0) mmol/L BUN (7-18) mg/dL Creatinine (0.6-1.0) mg/dL Est Cr Clr Drug Dosing mL/min Estimated GFR (MDRD) (>60) Glucose (74-106) mg/dL POC Glucose (74-106) mg/dL Hemoglobin A1c (4.5-6.2) % Lactic Acid 2.9 H (0.4-2.0) mmol/L Calcium (8.5-10.1) mg/dL Total Bilirubin (0.2-1.0) mg/dL AST (15-37) U/L ALT (12-78) U/L Alkaline Phosphatase (46-116) U/L C-Reactive Protein 1.02 H (0.0-0.3) mg/dL Total Protein (6.4-8.2) g/dL Albumin (3.4-5.0) g/dL Globulin (2.3-3.5) g/dL Albumin/Globulin Ratio (1.2-2.2) Triglycerides (15-150) mg/dL Amylase (25-115) U/L Lipase (73-393) U/L Urine Color Yellow (YELLOW) Urine Appearance Clear (CLEAR) Urine pH 6.5 (5.0-8.0) Ur Specific [place] 1.015 (1.008-1.030) Urine Protein Negative (NEGATIVE) mg/dL Urine Glucose (UA) 100 H (NEGATIVE) mg/dL Urine Ketones 15 H (NEGATIVE) mg/dL Urine Occult Blood Negative (NEGATIVE) Urine Nitrite Negative (NEGATIVE) Urine Bilirubin Negative (NEGATIVE) Urine Urobilinogen 0.2 (0.2-1.0) EU/dL Ur Leukocyte Esterase Negative (NEGATIVE) Urine RBC 0-5 (0-5) Urine WBC 0-5 (0-5) Ur Epithelial Cells Rare Amorphous Sediment Not seen Urine Bacteria Rare Urine Mucus Not seen Urine Opiates Screen (NEGATIVE) Ur Oxycodone Screen (NEGATIVE) Urine Methadone Screen (NEGATIVE) Ur Propoxyphene Screen (NEGATIVE) Ur Barbiturates Screen (NEGATIVE) Ur Tricyclics Screen (NEGATIVE) Ur Phencyclidine Scrn (NEGATIVE) Ur Amphetamine Screen (NEGATIVE) U Methamphetamines Scrn (NEGATIVE) Urine MDMA Screen (NEGATIVE) U Benzodiazepines Scrn (NEGATIVE) U Cocaine Metab Screen (NEGATIVE) U Marijuana (THC) Screen (NEGATIVE) 11/12/20 11/13/20 11/13/20 Range/Units Unknown 00:21 04:31 WBC 15.7 H (4.5-11.0) K/uL RBC 5.32 (3.30-5.50) M/uL Hgb 14.5 (12.0-15.0) g/dL Hct 43.9 (36.0-48.0) % MCV 83 (80-98) fL MCH 27 (27-31) pg MCHC 33 (32-36) % Plt Count 260 (150-400) K/uL Neut % (Auto) 89.1 H (36-66) % Lymph % (Auto) 7.0 L (24-44) % [place] % (Auto) 3.8 (2-6) % Eos % (Auto) 0.0 L (2-4) % Baso % (Auto) 0.1 (0-1) % Sodium (140-148) mmol/L Potassium (3.6-5.2) mmol/L Chloride (100-108) mmol/L Carbon Dioxide (21-32) mmol/L Anion Gap (5.0-14.0) mmol/L BUN (7-18) mg/dL Creatinine (0.6-1.0) mg/dL Est Cr Clr Drug Dosing mL/min Estimated GFR (MDRD) (>60) Glucose (74-106) mg/dL POC Glucose (74-106) mg/dL Hemoglobin A1c (4.5-6.2) % Lactic Acid (0.4-2.0) mmol/L Calcium (8.5-10.1) mg/dL Total Bilirubin (0.2-1.0) mg/dL AST (15-37) U/L ALT (12-78) U/L Alkaline Phosphatase (46-116) U/L C-Reactive Protein (0.0-0.3) mg/dL Total Protein (6.4-8.2) g/dL Albumin (3.4-5.0) g/dL Globulin (2.3-3.5) g/dL Albumin/Globulin Ratio (1.2-2.2) Triglycerides 315 H (15-150) mg/dL Amylase (25-115) U/L Lipase (73-393) U/L Urine Color (YELLOW) Urine Appearance (CLEAR) Urine pH (5.0-8.0) Ur Specific [place] (1.008-1.030) Urine Protein (NEGATIVE) mg/dL Urine Glucose (UA) (NEGATIVE) mg/dL Urine Ketones (NEGATIVE) mg/dL Urine Occult Blood (NEGATIVE) Urine Nitrite (NEGATIVE) Urine Bilirubin (NEGATIVE) Urine Urobilinogen (0.2-1.0) EU/dL Ur Leukocyte Esterase (NEGATIVE) Urine RBC (0-5) Urine WBC (0-5) Ur Epithelial Cells Amorphous Sediment Urine Bacteria Urine Mucus Urine Opiates Screen Negative (NEGATIVE) Ur Oxycodone Screen Negative (NEGATIVE) Urine Methadone Screen Negative (NEGATIVE) Ur Propoxyphene Screen Negative (NEGATIVE) Ur Barbiturates Screen Negative (NEGATIVE) Ur Tricyclics Screen Negative (NEGATIVE) Ur Phencyclidine Scrn Negative (NEGATIVE) Ur Amphetamine Screen Negative (NEGATIVE) U Methamphetamines Scrn Negative (NEGATIVE) Urine MDMA Screen Negative (NEGATIVE) U Benzodiazepines Scrn Negative (NEGATIVE) U Cocaine Metab Screen Negative (NEGATIVE) U Marijuana (THC) Screen Negative (NEGATIVE) 11/13/20 11/13/20 11/13/20 Range/Units 04:31 04:31 07:13 WBC (4.5-11.0) K/uL RBC (3.30-5.50) M/uL Hgb (12.0-15.0) g/dL Hct (36.0-48.0) % MCV (80-98) fL MCH (27-31) pg MCHC (32-36) % Plt Count (150-400) K/uL Neut % (Auto) (36-66) % Lymph % (Auto) (24-44) % [place] % (Auto) (2-6) % Eos % (Auto) (2-4) % Baso % (Auto) (0-1) % Sodium 142 (140-148) mmol/L Potassium 4.5 (3.6-5.2) mmol/L Chloride 103 (100-108) mmol/L Carbon Dioxide 26 (21-32) mmol/L Anion Gap 13.4 (5.0-14.0) mmol/L BUN 13 (7-18) mg/dL Creatinine 0.9 (0.6-1.0) mg/dL Est Cr Clr Drug Dosing 63.24 mL/min Estimated GFR (MDRD) > 60 (>60) Glucose 254 H (74-106) mg/dL POC Glucose 257 H (74-106) mg/dL Hemoglobin A1c 6.9 H (4.5-6.2) % Lactic Acid (0.4-2.0) mmol/L Calcium 7.7 L D (8.5-10.1) mg/dL Total Bilirubin 0.7 (0.2-1.0) mg/dL AST 21 (15-37) U/L ALT 36 (12-78) U/L Alkaline Phosphatase 110 (46-116) U/L C-Reactive Protein 3.96 H (0.0-0.3) mg/dL Total Protein 6.1 L (6.4-8.2) g/dL Albumin 3.1 L (3.4-5.0) g/dL Globulin 3.0 (2.3-3.5) g/dL Albumin/Globulin Ratio 1.0 L (1.2-2.2) Triglycerides (15-150) mg/dL Amylase 904 H (25-115) U/L Lipase 6980 H (73-393) U/L Urine Color (YELLOW) Urine Appearance (CLEAR) Urine pH (5.0-8.0) Ur Specific [place] (1.008-1.030) Urine Protein (NEGATIVE) mg/dL Urine Glucose (UA) (NEGATIVE) mg/dL Urine Ketones (NEGATIVE) mg/dL Urine Occult Blood (NEGATIVE) Urine Nitrite (NEGATIVE) Urine Bilirubin (NEGATIVE) Urine Urobilinogen (0.2-1.0) EU/dL Ur Leukocyte Esterase (NEGATIVE) Urine RBC (0-5) Urine WBC (0-5) Ur Epithelial Cells Amorphous Sediment Urine Bacteria Urine Mucus Urine Opiates Screen (NEGATIVE) Ur Oxycodone Screen (NEGATIVE) Urine Methadone Screen (NEGATIVE) Ur Propoxyphene Screen (NEGATIVE) Ur Barbiturates Screen (NEGATIVE) Ur Tricyclics Screen (NEGATIVE) Ur Phencyclidine Scrn (NEGATIVE) Ur Amphetamine Screen (NEGATIVE) U Methamphetamines Scrn (NEGATIVE) Urine MDMA Screen (NEGATIVE) U Benzodiazepines Scrn (NEGATIVE) U Cocaine Metab Screen (NEGATIVE) U Marijuana (THC) Screen (NEGATIVE) Med Orders - Current: Current Medications Acetaminophen (Acetaminophen 325 Mg Tab) 650 mg PO Q4H PRN PRN Reason: Pain (Mild 1-3)/fever Albuterol (Albuterol 0.083% 2.5 Mg/3 Ml Neb Soln) 2.5 mg NEB Q4H PRN PRN Reason: Shortness Of Breath/wheezing Clonidine HCl (Clonidine 0.1 Mg Tab) 0.1 mg PO DAILY [facility] Last Admin: 11/13/20 09:18 Dose: 0.1 mg Documented by: Hydromorphone HCl (Hydromorphone/Normal Saline 15 Mg/30 Ml Night Guard) 0 mg IV ASDIRECTED PRN; Protocol PRN Reason: Pain Last Admin: 11/13/20 01:01 Dose: 15 mg Documented by: Hydromorphone HCl (Hydromorphone 1 Mg/Ml Syringe) 1 mg IVPUSH ONETIME ONE Stop: 11/13/20 09:49 Sodium Chloride (Normal Saline) 1,000 mls @ 150 mls/hr IV ASDIRECTED [facility] Last Admin: 11/13/20 09:02 Dose: 150 mls/hr Documented by: Ceftazidime 1 gm/ Sodium (Chloride) 50 mls @ 100 mls/hr IV Q8H [facility] Last Admin: 11/13/20 03:04 Dose: 100 mls/hr Documented by: Metronidazole 500 mg/ Premix 100 mls @ 100 mls/hr IV Q8H [facility] Last Admin: 11/13/20 09:18 Dose: 100 mls/hr Documented by: Insulin Human Lispro (Insulin Lispro 100 Unit/Ml 3 Ml Kwikpen) 0 unit SUBCUT Q6H [facility]; Protocol Lorazepam (Lorazepam 2 Mg/Ml Sdv) 1 mg IV Q6H PRN PRN Reason: Nausea/Vomiting Last Admin: 11/13/20 07:34 Dose: 1 mg Documented by: Naloxone HCl (Naloxone 0.4 Mg/Ml Sdv) 0.4 mg IVPUSH Q2M PRN PRN Reason: Respiratory Distress Ondansetron HCl (Ondansetron 4 Mg/2 Ml Sdv) 4 mg IV Q4H PRN PRN Reason: Nausea/Vomiting Last Admin: 11/13/20 09:17 Dose: 4 mg Documented by: Oxycodone HCl (Oxycodone 5 Mg Tab) 5 mg PO Q4H PRN PRN Reason: Pain (moderate 4-6) Pantoprazole Sodium (Pantoprazole 40 Mg Vial) 40 mg IV DAILY [facility] Last Admin: 11/13/20 09:17 Dose: 40 mg Documented by: Sodium Chloride (Sodium Chloride 0.9% 10 Ml Syringe) 10 ml FLUSH ASDIRECTED PRN PRN Reason: Keep Vein Open Last Admin: 11/12/20 20:57 Dose: 10 ml Documented by: Venlafaxine HCl (Venlafaxine 75 Mg Cap.Er) 150 mg PO DAILY [facility] Last Admin: 11/13/20 09:17 Dose: 150 mg Documented by: Discontinued Medications Hydromorphone HCl (Hydromorphone 1 Mg/Ml Syringe) 1 mg IVPUSH ONETIME ONE Stop: 11/12/20 21:51 Last Admin: 11/12/20 21:56 Dose: 1 mg Documented by: Hydromorphone HCl (Hydromorphone 0.5 Mg/0.5 Ml Syringe) 0.5 mg IVPUSH ONETIME ONE Stop: 11/12/20 22:25 Last Admin: 11/12/20 22:56 Dose: 0.5 mg Documented by: Hydromorphone HCl (Hydromorphone 1 Mg/Ml Syringe) 1 mg IVPUSH ONETIME ONE Stop: 11/13/20 00:17 Last Admin: 11/13/20 00:43 Dose: 1 mg Documented by: Sodium Chloride (Normal Saline) 1,000 mls @ 999 mls/hr IV ASDIRECTED [facility] Last Admin: 11/12/20 21:02 Dose: 999 mls/hr Documented by: Sodium Chloride (Normal Saline) 89 mls @ 3.5 mls/sec IV ASDIRECTED [facility] Last Admin: 11/12/20 22:18 Dose: 3.5 mls/sec Documented by: Iopamidol (Iopamidol 612 Mg/Ml 500 Ml Multipack Bottle) 150 ml IV ONETIME ONE Stop: 11/12/20 22:06 Last Admin: 11/12/20 22:18 Dose: 150 ml Documented by: Ketorolac Tromethamine (Ketorolac 30 Mg/Ml Sdv) 30 mg IVPUSH ONETIME ONE Stop: 11/12/20 20:48 Last Admin: 11/12/20 21:02 Dose: 30 mg Documented by: Ondansetron HCl (Ondansetron 4 Mg/2 Ml Sdv) 4 mg IVPUSH ONETIME ONE Stop: 11/12/20 20:48 Last Admin: 11/12/20 21:02 Dose: 4 mg Documented by: Ondansetron HCl (Ondansetron 4 Mg/2 Ml Sdv) 4 mg IVPUSH ONETIME ONE Stop: 11/12/20 22:44 Last Admin: 11/12/20 22:56 Dose: 4 mg Documented by: Sodium Chloride (Sodium Chloride 0.9% 10 Ml Syringe) 10 ml FLUSH ONETIME ONE Stop: 11/12/20 22:06 Last Admin: 11/12/20 22:18 Dose: 10 ml Documented by: - Exam Quality Assessment: No: Supplemental Oxygen General: Alert, Oriented, Cooperative, Moderate Distress Lungs: Normal Respiratory Effort. No: Wheezing Cardiovascular: Regular Rate, Regular Rhythm GI/Abdominal Exam: Soft, No Distention Extremities: No Pedal Edema. No: Increased Warmth Skin: Warm, Dry Psy/Mental Status: Alert, Normal Affect - Patient Data Lab Results Last 24 hrs: Laboratory Results - last 24 hr 11/12/20 11/12/20 11/12/20 Range/Units 20:56 20:58 20:58 WBC 26.0 H (4.5-11.0) K/uL RBC 5.84 H (3.30-5.50) M/uL Hgb 15.8 H (12.0-15.0) g/dL Hct 47.7 (36.0-48.0) % MCV 82 (80-98) fL MCH 27 (27-31) pg MCHC 33 (32-36) % Plt Count 356 (150-400) K/uL Neut % (Auto) 80.0 H (36-66) % Lymph % (Auto) 13.1 L (24-44) % [place] % (Auto) 6.0 (2-6) % Eos % (Auto) 0.7 L (2-4) % Baso % (Auto) 0.2 (0-1) % Sodium 140 (140-148) mmol/L Potassium 4.0 (3.6-5.2) mmol/L Chloride 102 (100-108) mmol/L Carbon Dioxide 28 (21-32) mmol/L Anion Gap 9.8 (5.0-14.0) mmol/L BUN 14 (7-18) mg/dL Creatinine 1.0 (0.6-1.0) mg/dL Est Cr Clr Drug Dosing 56.91 mL/min Estimated GFR (MDRD) 59 L (>60) Glucose 183 H (74-106) mg/dL POC Glucose (74-106) mg/dL Hemoglobin A1c (4.5-6.2) % Lactic Acid (0.4-2.0) mmol/L Calcium 9.1 (8.5-10.1) mg/dL Total Bilirubin 0.6 D (0.2-1.0) mg/dL AST 23 (15-37) U/L ALT 44 (12-78) U/L Alkaline Phosphatase 137 H (46-116) U/L C-Reactive Protein (0.0-0.3) mg/dL Total Protein 7.0 (6.4-8.2) g/dL Albumin 3.6 (3.4-5.0) g/dL Globulin 3.4 (2.3-3.5) g/dL Albumin/Globulin Ratio 1.1 L (1.2-2.2) Triglycerides (15-150) mg/dL Amylase 3192 H (25-115) U/L Lipase 87847 H (73-393) U/L Urine Color (YELLOW) Urine Appearance (CLEAR) Urine pH (5.0-8.0) Ur Specific [place] (1.008-1.030) Urine Protein (NEGATIVE) mg/dL Urine Glucose (UA) (NEGATIVE) mg/dL Urine Ketones (NEGATIVE) mg/dL Urine Occult Blood (NEGATIVE) Urine Nitrite (NEGATIVE) Urine Bilirubin (NEGATIVE) Urine Urobilinogen (0.2-1.0) EU/dL Ur Leukocyte Esterase (NEGATIVE) Urine RBC (0-5) Urine WBC (0-5) Ur Epithelial Cells Amorphous Sediment Urine Bacteria Urine Mucus Urine Opiates Screen (NEGATIVE) Ur Oxycodone Screen (NEGATIVE) Urine Methadone Screen (NEGATIVE) Ur Propoxyphene Screen (NEGATIVE) Ur Barbiturates Screen (NEGATIVE) Ur Tricyclics Screen (NEGATIVE) Ur Phencyclidine Scrn (NEGATIVE) Ur Amphetamine Screen (NEGATIVE) U Methamphetamines Scrn (NEGATIVE) Urine MDMA Screen (NEGATIVE) U Benzodiazepines Scrn (NEGATIVE) U Cocaine Metab Screen (NEGATIVE) U Marijuana (THC) Screen (NEGATIVE) 11/12/20 11/12/20 11/12/20 Range/Units 20:58 20:58 23:13 WBC (4.5-11.0) K/uL RBC (3.30-5.50) M/uL Hgb (12.0-15.0) g/dL Hct (36.0-48.0) % MCV (80-98) fL MCH (27-31) pg MCHC (32-36) % Plt Count (150-400) K/uL Neut % (Auto) (36-66) % Lymph % (Auto) (24-44) % [place] % (Auto) (2-6) % Eos % (Auto) (2-4) % Baso % (Auto) (0-1) % Sodium (140-148) mmol/L Potassium (3.6-5.2) mmol/L Chloride (100-108) mmol/L Carbon Dioxide (21-32) mmol/L Anion Gap (5.0-14.0) mmol/L BUN (7-18) mg/dL Creatinine (0.6-1.0) mg/dL Est Cr Clr Drug Dosing mL/min Estimated GFR (MDRD) (>60) Glucose (74-106) mg/dL POC Glucose (74-106) mg/dL Hemoglobin A1c (4.5-6.2) % Lactic Acid 2.9 H (0.4-2.0) mmol/L Calcium (8.5-10.1) mg/dL Total Bilirubin (0.2-1.0) mg/dL AST (15-37) U/L ALT (12-78) U/L Alkaline Phosphatase (46-116) U/L C-Reactive Protein 1.02 H (0.0-0.3) mg/dL Total Protein (6.4-8.2) g/dL Albumin (3.4-5.0) g/dL Globulin (2.3-3.5) g/dL Albumin/Globulin Ratio (1.2-2.2) Triglycerides (15-150) mg/dL Amylase (25-115) U/L Lipase (73-393) U/L Urine Color Yellow (YELLOW) Urine Appearance Clear (CLEAR) Urine pH 6.5 (5.0-8.0) Ur Specific [place] 1.015 (1.008-1.030) Urine Protein Negative (NEGATIVE) mg/dL Urine Glucose (UA) 100 H (NEGATIVE) mg/dL Urine Ketones 15 H (NEGATIVE) mg/dL Urine Occult Blood Negative (NEGATIVE) Urine Nitrite Negative (NEGATIVE) Urine Bilirubin Negative (NEGATIVE) Urine Urobilinogen 0.2 (0.2-1.0) EU/dL Ur Leukocyte Esterase Negative (NEGATIVE) Urine RBC 0-5 (0-5) Urine WBC 0-5 (0-5) Ur Epithelial Cells Rare Amorphous Sediment Not seen Urine Bacteria Rare Urine Mucus Not seen Urine Opiates Screen (NEGATIVE) Ur Oxycodone Screen (NEGATIVE) Urine Methadone Screen (NEGATIVE) Ur Propoxyphene Screen (NEGATIVE) Ur Barbiturates Screen (NEGATIVE) Ur Tricyclics Screen (NEGATIVE) Ur Phencyclidine Scrn (NEGATIVE) Ur Amphetamine Screen (NEGATIVE) U Methamphetamines Scrn (NEGATIVE) Urine MDMA Screen (NEGATIVE) U Benzodiazepines Scrn (NEGATIVE) U Cocaine Metab Screen (NEGATIVE) U Marijuana (THC) Screen (NEGATIVE) 11/12/20 11/13/20 11/13/20 Range/Units Unknown 00:21 04:31 WBC 15.7 H (4.5-11.0) K/uL RBC 5.32 (3.30-5.50) M/uL Hgb 14.5 (12.0-15.0) g/dL Hct 43.9 (36.0-48.0) % MCV 83 (80-98) fL MCH 27 (27-31) pg MCHC 33 (32-36) % Plt Count 260 (150-400) K/uL Neut % (Auto) 89.1 H (36-66) % Lymph % (Auto) 7.0 L (24-44) % [place] % (Auto) 3.8 (2-6) % Eos % (Auto) 0.0 L (2-4) % Baso % (Auto) 0.1 (0-1) % Sodium (140-148) mmol/L Potassium (3.6-5.2) mmol/L Chloride (100-108) mmol/L Carbon Dioxide (21-32) mmol/L Anion Gap (5.0-14.0) mmol/L BUN (7-18) mg/dL Creatinine (0.6-1.0) mg/dL Est Cr Clr Drug Dosing mL/min Estimated GFR (MDRD) (>60) Glucose (74-106) mg/dL POC Glucose (74-106) mg/dL Hemoglobin A1c (4.5-6.2) % Lactic Acid (0.4-2.0) mmol/L Calcium (8.5-10.1) mg/dL Total Bilirubin (0.2-1.0) mg/dL AST (15-37) U/L ALT (12-78) U/L Alkaline Phosphatase (46-116) U/L C-Reactive Protein (0.0-0.3) mg/dL Total Protein (6.4-8.2) g/dL Albumin (3.4-5.0) g/dL Globulin (2.3-3.5) g/dL Albumin/Globulin Ratio (1.2-2.2) Triglycerides 315 H (15-150) mg/dL Amylase (25-115) U/L Lipase (73-393) U/L Urine Color (YELLOW) Urine Appearance (CLEAR) Urine pH (5.0-8.0) Ur Specific [place] (1.008-1.030) Urine Protein (NEGATIVE) mg/dL Urine Glucose (UA) (NEGATIVE) mg/dL Urine Ketones (NEGATIVE) mg/dL Urine Occult Blood (NEGATIVE) Urine Nitrite (NEGATIVE) Urine Bilirubin (NEGATIVE) Urine Urobilinogen (0.2-1.0) EU/dL Ur Leukocyte Esterase (NEGATIVE) Urine RBC (0-5) Urine WBC (0-5) Ur Epithelial Cells Amorphous Sediment Urine Bacteria Urine Mucus Urine Opiates Screen Negative (NEGATIVE) Ur Oxycodone Screen Negative (NEGATIVE) Urine Methadone Screen Negative (NEGATIVE) Ur Propoxyphene Screen Negative (NEGATIVE) Ur Barbiturates Screen Negative (NEGATIVE) Ur Tricyclics Screen Negative (NEGATIVE) Ur Phencyclidine Scrn Negative (NEGATIVE) Ur Amphetamine Screen Negative (NEGATIVE) U Methamphetamines Scrn Negative (NEGATIVE) Urine MDMA Screen Negative (NEGATIVE) U Benzodiazepines Scrn Negative (NEGATIVE) U Cocaine Metab Screen Negative (NEGATIVE) U Marijuana (THC) Screen Negative (NEGATIVE) 11/13/20 11/13/20 11/13/20 Range/Units 04:31 04:31 07:13 WBC (4.5-11.0) K/uL RBC (3.30-5.50) M/uL Hgb (12.0-15.0) g/dL Hct (36.0-48.0) % MCV (80-98) fL MCH (27-31) pg MCHC (32-36) % Plt Count (150-400) K/uL Neut % (Auto) (36-66) % Lymph % (Auto) (24-44) % [place] % (Auto) (2-6) % Eos % (Auto) (2-4) % Baso % (Auto) (0-1) % Sodium 142 (140-148) mmol/L Potassium 4.5 (3.6-5.2) mmol/L Chloride 103 (100-108) mmol/L Carbon Dioxide 26 (21-32) mmol/L Anion Gap 13.4 (5.0-14.0) mmol/L BUN 13 (7-18) mg/dL Creatinine 0.9 (0.6-1.0) mg/dL Est Cr Clr Drug Dosing 63.24 mL/min Estimated GFR (MDRD) > 60 (>60) Glucose 254 H (74-106) mg/dL POC Glucose 257 H (74-106) mg/dL Hemoglobin A1c 6.9 H (4.5-6.2) % Lactic Acid (0.4-2.0) mmol/L Calcium 7.7 L D (8.5-10.1) mg/dL Total Bilirubin 0.7 (0.2-1.0) mg/dL AST 21 (15-37) U/L ALT 36 (12-78) U/L Alkaline Phosphatase 110 (46-116) U/L C-Reactive Protein 3.96 H (0.0-0.3) mg/dL Total Protein 6.1 L (6.4-8.2) g/dL Albumin 3.1 L (3.4-5.0) g/dL Globulin 3.0 (2.3-3.5) g/dL Albumin/Globulin Ratio 1.0 L (1.2-2.2) Triglycerides (15-150) mg/dL Amylase 904 H (25-115) U/L Lipase 6980 H (73-393) U/L Urine Color (YELLOW) Urine Appearance (CLEAR) Urine pH (5.0-8.0) Ur Specific [place] (1.008-1.030) Urine Protein (NEGATIVE) mg/dL Urine Glucose (UA) (NEGATIVE) mg/dL Urine Ketones (NEGATIVE) mg/dL Urine Occult Blood (NEGATIVE) Urine Nitrite (NEGATIVE) Urine Bilirubin (NEGATIVE) Urine Urobilinogen (0.2-1.0) EU/dL Ur Leukocyte Esterase (NEGATIVE) Urine RBC (0-5) Urine WBC (0-5) Ur Epithelial Cells Amorphous Sediment Urine Bacteria Urine Mucus Urine Opiates Screen (NEGATIVE) Ur Oxycodone Screen (NEGATIVE) Urine Methadone Screen (NEGATIVE) Ur Propoxyphene Screen (NEGATIVE) Ur Barbiturates Screen (NEGATIVE) Ur Tricyclics Screen (NEGATIVE) Ur Phencyclidine Scrn (NEGATIVE) Ur Amphetamine Screen (NEGATIVE) U Methamphetamines Scrn (NEGATIVE) Urine MDMA Screen (NEGATIVE) U Benzodiazepines Scrn (NEGATIVE) U Cocaine Metab Screen (NEGATIVE) U Marijuana (THC) Screen (NEGATIVE) Result Diagrams: 11/13/20 04:31 11/13/20 04:31 Sepsis Event Note - Focused Exam Vital Signs: Vital Signs Temp Pulse Resp BP BP Pulse Ox 11/13/20 09:18 170/110 H 11/13/20 08:00 95 11/13/20 07:00 35.9 C L 81 16 170/110 H 96 11/13/20 03:18 35.8 C L 66 18 166/94 H 93 L 11/13/20 02:40 90 L 11/13/20 01:04 36.1 C 70 18 154/97 H 96 - Problem List Review Problem List Initiated/Reviewed/Updated: Yes - My Orders Last 24 Hours: My Active Orders 11/13/20 08:10 Communication Order [RC] PRN Communication Order [RC] PRN Diabetes Education [RC] Click to Edit Notify Provider [RC] PRN 11/13/20 09:48 Cholangiopancreatography [MR] Routine HYDROmorphone [Dilaudid] 1 mg IVPUSH ONETIME ONE 11/13/20 12:00 GLUCOSE POC LAB TO COLLECT JPM [POC] Q6H Insulin Lispro [HumaLOG] See Protocol SUBCUT Q6H 11/13/20 18:00 GLUCOSE POC LAB TO COLLECT JPM [POC] Q6H 11/14/20 00:00 GLUCOSE POC LAB TO COLLECT JPM [POC] Q6H 11/14/20 05:00 CBC W/O DIFF,HEMOGRAM [HEME] Timed (1) COMPREHENSIVE METABOLIC PN,CMP [CHEM] Timed LIPASE [CHEM] Timed 11/14/20 06:00 GLUCOSE POC LAB TO COLLECT JPM [POC] Q6H 11/14/20 12:00 GLUCOSE POC LAB TO COLLECT JPM [POC] Q6H 11/14/20 18:00 GLUCOSE POC LAB TO COLLECT JPM [POC] Q6H 11/15/20 00:00 GLUCOSE POC LAB TO COLLECT JPM [POC] Q6H 11/15/20 06:00 GLUCOSE POC LAB TO COLLECT JPM [POC] Q6H 11/15/20 12:00 GLUCOSE POC LAB TO COLLECT JPM [POC] Q6H - Plan Plan:: ASSESSMENT AND PLAN - ACUTE PANCREATITIS-etiology unclear. No necrosis noted on CT scan. No obvious stones on CT scan. Lipase much better but pain and nausea are essentially unchanged. No report of alcohol use. Drug screen negative. No concerning medications on her list. She is a smoker. -MRCP -Continue IV fluids -Symptomatic management of pain and nausea -NPO -Labs in the morning Depression - no concerns at this time. Medication controls symptoms. -Venlafaxine ER 150 mg po daily -Clonidine 0.1 mg daily in am Hypercholesteremia -hold Atorvastatin Tobacco dependence-encourage cessation Maintenance issues - - DVT prophylaxis - enoxaparin - GI prophylaxis - PPI - Nutrition - regular - [place] catheter - not indicated Disposition - anticipate discharge home after the hospital stay Primary care physician - Dr. Tarsha Choudhury[facility], [facility] and Lori Holland NP, [facility], [place], [place] Miguel Whitlock M.D.
[2020-11-13] MEDS: Metoclopramide 10 MG/2 ML SDV IVPUSH SCH ×3 (10:11→21:15)
[2020-11-13] MEDS: Insulin Lispro 100 Unit/ML 3 ML KwikPen SUBCUT SCH ×2 (12:09→18:12)
[2020-11-13] MEDS ORDERED: LORazepam 2 MG/ML SDV IVPUSH ONE (12:10)
--- NOTE | 2020-11-13 15:00 | MR ---
Cholangiopancreatography CLINICAL HISTORY: Pancreatitis COMPARISON: CT abdomen 11/12/2020 TECHNIQUE: Multiple images of the biliary system were obtained. All images were obtained on a 1.5 Mayda Siemens unit. FINDINGS: The liver is free of mass or biliary dilatation. Gallbladder contains multiple stones. There is some free fluid in the region of the liver. There is also some fluid around the spleen. There is fluid around the pancreas with moderate edema medially. Pancreatic soft tissues. There is some edema in the transverse duodenum. There is fluid in the colonic gutters bilaterally. No focal pancreatic mass is identified. IMPRESSION: Changes of moderate diffuse pancreatitis with moderate peripancreatic edema and free fluid in the abdomen. No focal mass is seen Cholelithiasis
[2020-11-13] MEDS ORDERED: Sodium Chloride 0.9% 1,000 ML IV SCH (16:00)
[2020-11-13] MEDS ORDERED: hydrOXYzine HCL 100 MG/2 ML SDV IM ONE (17:57)
[2020-11-14] MEDS: Insulin Lispro 100 Unit/ML 3 ML KwikPen SUBCUT SCH ×4 (01:58→18:19)
[2020-11-14] MEDS: metroNIDAZOLE/Normal Saline 500 MG in Premix Bag 1 BAG IV SCH (02:05)
[2020-11-14] MEDS: LORazepam 2 MG/ML SDV IV PRN ×3 (02:06→19:53)
[2020-11-14] MEDS: Metoclopramide 10 MG/2 ML SDV IVPUSH SCH ×4 (05:36→21:33)
--- NOTE | 2020-11-14 09:21 | PCM.PN ---
- General Info Date of Service: 11/14/20 Subjective Update: No acute events overnight. Pain has improved quite a bit since yesterday. She reports minimal abdominal pain today. She does have some intermittent nausea but this seems to happen after pain medications are administered. No diarrhea. She is reporting some back pain that feels spasm-like and she thinks this is because of the bed. No fevers. Lipase quite a bit better even from yesterday. White count is slightly higher today but no fever or evidence for infection otherwise. Functional Status: Reports: Pain Controlled - Review of Systems Gastrointestinal: Denies: Abdominal Pain Musculoskeletal: Reports: Back Pain - Patient Data Vitals - Most Recent: Last Vital Signs Temp 36.6 C 11/14/20 08:00 Pulse 90 11/14/20 08:00 Resp 16 11/14/20 08:00 BP 148/84 H 11/14/20 08:00 Pulse Ox 93 L 11/14/20 08:00 Weight - Most Recent: 129.274 kg I&O - Last 24 Hours: Intake & Output 11/13/20 11/14/20 11/14/20 22:59 06:59 14:59 Intake Total 1323 1089 Output Total 900 50 Balance 1323 189 -50 Lab Results Last 24 Hours: Laboratory Results - last 24 hr 11/13/20 11/13/20 11/14/20 Range/Units 11:29 18:01 01:30 WBC (4.5-11.0) K/uL RBC (3.30-5.50) M/uL Hgb (12.0-15.0) g/dL Hct (36.0-48.0) % MCV (80-98) fL MCH (27-31) pg MCHC (32-36) % Plt Count (150-400) K/uL Sodium (140-148) mmol/L Potassium (3.6-5.2) mmol/L Chloride (100-108) mmol/L Carbon Dioxide (21-32) mmol/L Anion Gap (5.0-14.0) mmol/L BUN (7-18) mg/dL Creatinine (0.6-1.0) mg/dL Est Cr Clr Drug Dosing mL/min Estimated GFR (MDRD) (>60) Glucose (74-106) mg/dL POC Glucose 268 H 206 H 176 H (74-106) mg/dL Calcium (8.5-10.1) mg/dL Total Bilirubin (0.2-1.0) mg/dL AST (15-37) U/L ALT (12-78) U/L Alkaline Phosphatase (46-116) U/L Total Protein (6.4-8.2) g/dL Albumin (3.4-5.0) g/dL Globulin (2.3-3.5) g/dL Albumin/Globulin Ratio (1.2-2.2) Lipase (73-393) U/L 11/14/20 11/14/20 11/14/20 Range/Units 05:32 05:35 05:35 WBC 23.2 H (4.5-11.0) K/uL RBC 5.21 (3.30-5.50) M/uL Hgb 14.1 (12.0-15.0) g/dL Hct 43.6 (36.0-48.0) % MCV 84 (80-98) fL MCH 27 (27-31) pg MCHC 32 (32-36) % Plt Count 297 (150-400) K/uL Sodium 139 L (140-148) mmol/L Potassium 4.1 (3.6-5.2) mmol/L Chloride 104 (100-108) mmol/L Carbon Dioxide 23 (21-32) mmol/L Anion Gap 16.1 H (5.0-14.0) mmol/L BUN 14 (7-18) mg/dL Creatinine 0.8 (0.6-1.0) mg/dL Est Cr Clr Drug Dosing 71.14 mL/min Estimated GFR (MDRD) > 60 (>60) Glucose 182 H (74-106) mg/dL POC Glucose 177 H (74-106) mg/dL Calcium 7.4 L (8.5-10.1) mg/dL Total Bilirubin 1.1 H D (0.2-1.0) mg/dL AST 27 (15-37) U/L ALT 26 (12-78) U/L Alkaline Phosphatase 91 (46-116) U/L Total Protein 5.8 L (6.4-8.2) g/dL Albumin 2.6 L (3.4-5.0) g/dL Globulin 3.2 (2.3-3.5) g/dL Albumin/Globulin Ratio 0.8 L (1.2-2.2) Lipase 2540 H (73-393) U/L Med Orders - Current: Current Medications Acetaminophen (Acetaminophen 325 Mg Tab) 650 mg PO Q4H PRN PRN Reason: Pain (Mild 1-3)/fever Albuterol (Albuterol 0.083% 2.5 Mg/3 Ml Neb Soln) 2.5 mg NEB Q4H PRN PRN Reason: Shortness Of Breath/wheezing Clonidine HCl (Clonidine 0.1 Mg Tab) 0.1 mg PO DAILY [facility] Last Admin: 11/13/20 09:18 Dose: 0.1 mg Documented by: Insulin Human Lispro (Insulin Lispro 100 Unit/Ml 3 Ml Kwikpen) 0 unit SUBCUT Q6H [facility]; Protocol Last Admin: 11/14/20 05:37 Dose: 2 unit Documented by: Lorazepam (Lorazepam 2 Mg/Ml Sdv) 1 mg IV Q6H PRN PRN Reason: Nausea/Vomiting Last Admin: 11/14/20 02:06 Dose: 1 mg Documented by: Metoclopramide HCl (Metoclopramide 10 Mg/2 Ml Sdv) 10 mg IVPUSH Q6H [facility] Last Admin: 11/14/20 05:36 Dose: 10 mg Documented by: Ondansetron HCl (Ondansetron 4 Mg/2 Ml Sdv) 4 mg IV Q4H PRN PRN Reason: Nausea/Vomiting Last Admin: 11/13/20 09:17 Dose: 4 mg Documented by: Pantoprazole Sodium (Pantoprazole 40 Mg Vial) 40 mg IV DAILY [facility] Last Admin: 11/13/20 09:17 Dose: 40 mg Documented by: Sodium Chloride (Sodium Chloride 0.9% 10 Ml Syringe) 10 ml FLUSH ASDIRECTED PRN PRN Reason: Keep Vein Open Last Admin: 11/12/20 20:57 Dose: 10 ml Documented by: Venlafaxine HCl (Venlafaxine 75 Mg Cap.Er) 150 mg PO DAILY [facility] Last Admin: 11/13/20 09:17 Dose: 150 mg Documented by: Discontinued Medications Hydromorphone HCl (Hydromorphone 1 Mg/Ml Syringe) 1 mg IVPUSH ONETIME ONE Stop: 11/12/20 21:51 Last Admin: 11/12/20 21:56 Dose: 1 mg Documented by: Hydromorphone HCl (Hydromorphone 0.5 Mg/0.5 Ml Syringe) 0.5 mg IVPUSH ONETIME ONE Stop: 11/12/20 22:25 Last Admin: 11/12/20 22:56 Dose: 0.5 mg Documented by: Hydromorphone HCl (Hydromorphone 1 Mg/Ml Syringe) 1 mg IVPUSH ONETIME ONE Stop: 11/13/20 00:17 Last Admin: 11/13/20 00:43 Dose: 1 mg Documented by: Hydromorphone HCl (Hydromorphone/Normal Saline 15 Mg/30 Ml [employer]) 0 mg IV ASDIRECTED PRN; Protocol PRN Reason: Pain Last Admin: 11/13/20 01:01 Dose: 15 mg Documented by: Hydromorphone HCl (Hydromorphone 1 Mg/Ml Syringe) 1 mg IVPUSH ONETIME ONE Stop: 11/13/20 09:49 Last Admin: 11/13/20 10:11 Dose: 1 mg Documented by: Hydroxyzine HCl (Hydroxyzine Hcl 100 Mg/2 Ml Sdv) 100 mg IM ONETIME ONE Stop: 11/13/20 17:58 Last Admin: 11/13/20 18:09 Dose: 100 mg Documented by: Sodium Chloride (Normal Saline) 1,000 mls @ 999 mls/hr IV ASDIRECTED [facility] Last Admin: 11/12/20 21:02 Dose: 999 mls/hr Documented by: Sodium Chloride (Normal Saline) 89 mls @ 3.5 mls/sec IV ASDIRECTED [facility] Last Admin: 11/12/20 22:18 Dose: 3.5 mls/sec Documented by: Sodium Chloride (Normal Saline) 1,000 mls @ 150 mls/hr IV ASDIRECTED [facility] Last Admin: 11/13/20 09:02 Dose: 150 mls/hr Documented by: Ceftazidime 1 gm/ Sodium (Chloride) 50 mls @ 100 mls/hr IV Q8H [facility] Last Admin: 11/13/20 10:11 Dose: 100 mls/hr Documented by: Metronidazole 500 mg/ Premix 100 mls @ 100 mls/hr IV Q8H [facility] Last Admin: 11/14/20 02:05 Dose: 100 mls/hr Documented by: Ceftazidime 1 gm/ Sodium (Chloride) 50 mls @ 100 mls/hr IV Q8HR [facility] Last Admin: 11/14/20 05:36 Dose: 100 mls/hr Documented by: Sodium Chloride (Normal Saline) 1,000 mls @ 100 mls/hr IV ASDIRECTED [facility] Last Admin: 11/13/20 19:18 Dose: 100 mls/hr Documented by: Iopamidol (Iopamidol 612 Mg/Ml 500 Ml Multipack Bottle) 150 ml IV ONETIME ONE Stop: 11/12/20 22:06 Last Admin: 11/12/20 22:18 Dose: 150 ml Documented by: Ketorolac Tromethamine (Ketorolac 30 Mg/Ml Sdv) 30 mg IVPUSH ONETIME ONE Stop: 11/12/20 20:48 Last Admin: 11/12/20 21:02 Dose: 30 mg Documented by: Lorazepam (Lorazepam 2 Mg/Ml Sdv) 1 mg IVPUSH ONETIME ONE Stop: 11/13/20 12:11 Last Admin: 11/13/20 12:10 Dose: 1 mg Documented by: Naloxone HCl (Naloxone 0.4 Mg/Ml Sdv) 0.4 mg IVPUSH Q2M PRN PRN Reason: Respiratory Distress Ondansetron HCl (Ondansetron 4 Mg/2 Ml Sdv) 4 mg IVPUSH ONETIME ONE Stop: 11/12/20 20:48 Last Admin: 11/12/20 21:02 Dose: 4 mg Documented by: Ondansetron HCl (Ondansetron 4 Mg/2 Ml Sdv) 4 mg IVPUSH ONETIME ONE Stop: 11/12/20 22:44 Last Admin: 11/12/20 22:56 Dose: 4 mg Documented by: Oxycodone HCl (Oxycodone 5 Mg Tab) 5 mg PO Q4H PRN PRN Reason: Pain (moderate 4-6) Sodium Chloride (Sodium Chloride 0.9% 10 Ml Syringe) 10 ml FLUSH ONETIME ONE Stop: 11/12/20 22:06 Last Admin: 11/12/20 22:18 Dose: 10 ml Documented by: - Exam Quality Assessment: No: Supplemental Oxygen General: Alert, Oriented, Cooperative, No Acute Distress Lungs: Normal Respiratory Effort. No: Wheezing GI/Abdominal Exam: Soft, No Distention Extremities: No Pedal Edema. No: Increased Warmth Psy/Mental Status: Alert, Normal Affect - Patient Data Lab Results Last 24 hrs: Laboratory Results - last 24 hr 11/13/20 11/13/20 11/14/20 Range/Units 11:29 18:01 01:30 WBC (4.5-11.0) K/uL RBC (3.30-5.50) M/uL Hgb (12.0-15.0) g/dL Hct (36.0-48.0) % MCV (80-98) fL MCH (27-31) pg MCHC (32-36) % Plt Count (150-400) K/uL Sodium (140-148) mmol/L Potassium (3.6-5.2) mmol/L Chloride (100-108) mmol/L Carbon Dioxide (21-32) mmol/L Anion Gap (5.0-14.0) mmol/L BUN (7-18) mg/dL Creatinine (0.6-1.0) mg/dL Est Cr Clr Drug Dosing mL/min Estimated GFR (MDRD) (>60) Glucose (74-106) mg/dL POC Glucose 268 H 206 H 176 H (74-106) mg/dL Calcium (8.5-10.1) mg/dL Total Bilirubin (0.2-1.0) mg/dL AST (15-37) U/L ALT (12-78) U/L Alkaline Phosphatase (46-116) U/L Total Protein (6.4-8.2) g/dL Albumin (3.4-5.0) g/dL Globulin (2.3-3.5) g/dL Albumin/Globulin Ratio (1.2-2.2) Lipase (73-393) U/L 11/14/20 11/14/20 11/14/20 Range/Units 05:32 05:35 05:35 WBC 23.2 H (4.5-11.0) K/uL RBC 5.21 (3.30-5.50) M/uL Hgb 14.1 (12.0-15.0) g/dL Hct 43.6 (36.0-48.0) % MCV 84 (80-98) fL MCH 27 (27-31) pg MCHC 32 (32-36) % Plt Count 297 (150-400) K/uL Sodium 139 L (140-148) mmol/L Potassium 4.1 (3.6-5.2) mmol/L Chloride 104 (100-108) mmol/L Carbon Dioxide 23 (21-32) mmol/L Anion Gap 16.1 H (5.0-14.0) mmol/L BUN 14 (7-18) mg/dL Creatinine 0.8 (0.6-1.0) mg/dL Est Cr Clr Drug Dosing 71.14 mL/min Estimated GFR (MDRD) > 60 (>60) Glucose 182 H (74-106) mg/dL POC Glucose 177 H (74-106) mg/dL Calcium 7.4 L (8.5-10.1) mg/dL Total Bilirubin 1.1 H D (0.2-1.0) mg/dL AST 27 (15-37) U/L ALT 26 (12-78) U/L Alkaline Phosphatase 91 (46-116) U/L Total Protein 5.8 L (6.4-8.2) g/dL Albumin 2.6 L (3.4-5.0) g/dL Globulin 3.2 (2.3-3.5) g/dL Albumin/Globulin Ratio 0.8 L (1.2-2.2) Lipase 2540 H (73-393) U/L Result Diagrams: 11/14/20 05:35 11/14/20 05:35 Sepsis Event Note - Focused Exam Vital Signs: Vital Signs Temp Pulse Resp BP Pulse Ox 11/14/20 08:00 36.6 C 90 16 148/84 H 93 L 11/14/20 03:56 37.3 C 85 16 139/81 93 L 11/14/20 01:00 94 L 11/14/20 00:01 36.6 C 83 18 132/85 94 L - Problem List Review Problem List Initiated/Reviewed/Updated: Yes - My Orders Last 24 Hours: My Active Orders 11/13/20 10:00 Metoclopramide [Reglan] 10 mg IVPUSH Q6H 11/13/20 12:00 Insulin Lispro [HumaLOG] See Protocol SUBCUT Q6H 11/13/20 15:21 Discontinue Telemetry Monitoring [Cardiac Monitoring Discontinue] [RC] Click to Edit 11/14/20 Breakfast Clear Liquid Diet [DIET] 11/14/20 09:19 traMADol [Ultram] 50 mg PO Q4H PRN Convert IV to Saline Lock [OM.PC] Routine 11/14/20 12:00 GLUCOSE POC LAB TO COLLECT JPM [POC] Q6H 11/14/20 18:00 GLUCOSE POC LAB TO COLLECT JPM [POC] Q6H 11/15/20 00:00 GLUCOSE POC LAB TO COLLECT JPM [POC] Q6H 11/15/20 05:00 CBC W/O DIFF,HEMOGRAM [HEME] Timed (1) COMPREHENSIVE METABOLIC PN,CMP [CHEM] Timed LIPASE [CHEM] Timed 11/15/20 06:00 GLUCOSE POC LAB TO COLLECT JPM [POC] Q6H 11/15/20 12:00 GLUCOSE POC LAB TO COLLECT JPM [POC] Q6H - Plan Plan:: ASSESSMENT AND PLAN - ACUTE PANCREATITIS-probably secondary to gallstone obstructing the pancreatic duct temporarily. Pain is much better. Lipase down further from yesterday. Tolerating ice chips. -Trial of clear liquids -Saline lock IV -Symptomatic management of pain and nausea -Advance diet later tonight if tolerating New onset diabetes mellitus-hyperglycemia noted in the emergency room and hemoglobin A1c is elevated at 6.9. Currently covering with sliding scale insulin. -Diabetic education -Anticipate starting Metformin at the time of discharge Depression -stable. -Venlafaxine ER 150 mg po daily -Clonidine 0.1 mg daily in am Hypercholesteremia -hold Atorvastatin Tobacco dependence-encourage cessation Maintenance issues - - DVT prophylaxis - enoxaparin - GI prophylaxis - PPI - Nutrition -clear liquids - Medrano catheter - not indicated Disposition - anticipate discharge home after the hospital stay Miguel Whitlock M.D.
[2020-11-14] MEDS: Pantoprazole 40 MG Vial IV SCH (09:42)
[2020-11-14] MEDS: cloNIDine 0.1 MG Tab PO SCH (09:42)
[2020-11-14] MEDS: Venlafaxine 75 MG Cap.ER PO SCH (09:42)
[2020-11-14] MEDS: Cyclobenzaprine 10 MG Tab PO PRN ×2 (09:49→17:42)
[2020-11-14] MEDS: traMADol 50 MG Tab PO PRN ×5 (09:49→22:44)
[2020-11-14] MEDS: Trolamine Salicylate/Aloe Vera 10% Crm 85 GM Tube TOP PRN ×2 (18:42→21:34)
[2020-11-14] MEDS ORDERED: Zolpidem 5 MG Tab PO SCH (21:00)
[2020-11-14] MEDS: tiZANidine 2 MG Tab PO PRN (21:50)
[2020-11-15] MEDS: Insulin Lispro 100 Unit/ML 3 ML KwikPen SUBCUT SCH ×2 (00:40→06:03)
[2020-11-15] MEDS: HYDROmorphone 0.5 MG/0.5 ML Syringe IVPUSH PRN ×3 (01:36→07:40)
[2020-11-15] MEDS: traMADol 50 MG Tab PO PRN (04:24)
[2020-11-15] MEDS: tiZANidine 2 MG Tab PO PRN (04:24)
[2020-11-15] MEDS: Metoclopramide 10 MG/2 ML SDV IVPUSH SCH (04:27)
[2020-11-15] MEDS ORDERED: Calcium Carbonate 500 MG Tab.Chew PO PRN (05:38)
[2020-11-15 07:44] VITALS: PULSE 104
[2020-11-15] MEDS: cloNIDine 0.1 MG Tab PO SCH (08:37)
[2020-11-15 08:38] VITALS: BP 150/80
[2020-11-15] MEDS: Pantoprazole 40 MG Vial IV SCH (08:38)
[2020-11-15] MEDS: Venlafaxine 75 MG Cap.ER PO SCH (08:38)
--- NOTE | 2020-11-15 09:14 | PCM.DCSUM1 ---
Discharge Summary - Hospital Course Brief History: 50-year-old female with history of hypercholesterolemia and obesity with a BMI greater than 50 who presented with acute abdominal pain with nausea. She was admitted for management of acute pancreatitis. Diagnosis: Stroke: No - Discharge Data Discharge Date: 11/15/20 Discharge Disposition: Home, Self-Care 01 Condition: Good - Referral to Home Health Primary Care Physician: PCP None - Discharge Diagnosis/Problem(s) (1) Acute gallstone pancreatitis SNOMED Code(s): 527202621 ICD Code: K85.10 - BILIARY ACUTE PANCREATITIS WITHOUT NECROSIS OR INFECTION Status: Acute (2) Cholelithiasis SNOMED Code(s): 985561680 ICD Code: K80.20 - CALCULUS OF GALLBLADDER W/O CHOLECYSTITIS W/O OBSTRUCTION Status: Acute Qualifiers: Cholelithiasis location: other site Biliary obstruction: without biliary obstruction Qualified Code(s): K80.80 - Other cholelithiasis without obstruction (3) Impaired fasting glucose SNOMED Code(s): 802070543 ICD Code: R73.01 - IMPAIRED FASTING GLUCOSE Status: Acute (4) Morbid obesity with BMI of 50.0-59.9, adult SNOMED Code(s): 668232472, 69712505051167 ICD Code: E66.01 - MORBID (SEVERE) OBESITY DUE TO EXCESS CALORIES; Z68.43 - BODY MASS INDEX [BMI] 50.0-59.9, ADULT Status: Chronic - Patient Summary/Data Hospital Course: Bridgette presented with acute upper abdominal pain as well as nausea. Work-up in the emergency room revealed evidence for pancreatitis with a lipase level of nearly 60,000. CT scan showed significant peripancreatic edema consistent with pancreatitis but no evidence for stone or biliary obstruction. Patient did not report alcohol use or drug use and her drug screen was negative. She was admitted to the hospital for symptomatic management of pain and nausea as well as IV fluid hydration. The morning after admission she was still having a fair amount of pain but her lipase level had come down to around 6000. Because of the unclear cause for the pancreatitis we performed an MRCP. This showed evidence for cholelithiasis but no evidence for biliary obstruction. Gallstone pancreatitis was suspected at this point. Throughout the day the patient had improvement in her abdominal pain and resolution of her nausea. We did try some ice chips which she tolerated okay. The next day we trialed clear liquids since her abdominal pain had essentially resolved. Her lipase was down to about 2500 at this point. She tolerated the clear liquids well. On the morning of discharge her lipase is down to around 600. She does not have any abdominal pain or nausea. She has been struggling some with pain in her back which she blames on muscle spasms from the uncomfortable hospital bed. These have been better managed with tizanidine. The patient feels well enough to go home at this time. The plan is for her to follow-up with Dr. Mahajan of the surgery department to discuss cholecystectomy to help prevent future episodes of gallstone pancreatitis or biliary obstruction with her remaining gallstones. She would like some time to recover after this episode before considering surgery. Also noted during the hospital stay was hyperglycemia and hemoglobin A1c of 6.9. I did discuss this with the patient. She reports a history of hyperglycemia. Medications to treat diabetes have been suggested but she reports that she was able to control them with diet and exercise at that time. She has not continued these control means recently. She is not interested in starting medications at this time and is hoping that she can get back to treating this in a nonpharmacological manner. - Patient Instructions Diet: Regular Diet as Tolerated Diet, Other: start with liquids and slowly build up to regular food Activity: As Tolerated Showering/Bathing: May Shower Notify Provider of: Fever, Increased Pain Other/Special Instructions: You were in the hospital for management of acute pancreatitis likely caused by a gallstone. Your condition is improving with symptomatic management and IV fluid hydration. I would recommend that she start with a liquid diet and slowly build up to soft and bland foods before returning to your usual diet. Do this slowly over the next several days. Because I suspect the episode was caused by a gallstone and you have additional stones in your gallbladder I would recommend that you have your gallbladder removed. We have set up an appointment with Dr. Mahajan to discuss cholecystectomy (gallbladder removal). Please seek medical attention if you develop severe abdominal pain, persistent vomiting or if you have fever greater than 101. - Discharge Plan *PRESCRIPTION DRUG MONITORING PROGRAM REVIEWED*: Not Applicable *COPY OF PRESCRIPTION DRUG MONITORING REPORT IN PATIENT SHARLENE: Not Applicable Prescriptions/Med Rec: tiZANidine [Zanaflex] 2 mg PO Q6H PRN #20 tablet PRN Reason: Spasms Home Medications: Home Meds cloNIDine [Catapres] 0.1 mg PO DAILY 09/29/13 [History] Omeprazole [Prilosec] 40 mg PO DAILY 12/20/13 [History] Venlafaxine HCl [Venlafaxine ER] 150 mg PO DAILY 10/22/15 [History] tiZANidine [Zanaflex] 2 mg PO Q6H PRN #20 tablet 11/15/20 [Rx] Patient Handouts: Acute Pancreatitis, [id number], Tizanidine tablets or capsules Referrals: Weston Borrero MD [Physician] - 11/21/20 11:00 am (Arrive 15 minutes to register for your appointment ) Lane Mahajan MD [Physician] - 11/28/20 12:00 pm (Please arrrive 15 minutes early to register for your appointment.) - Discharge Summary/Plan Comment DC Time >30 min.: No Total # of Minutes for Discharge Time: 25 - Patient Data Vitals - Most Recent: Last Vital Signs Temp 36.6 C 11/15/20 07:42 Pulse 104 H 11/15/20 07:42 Resp 18 11/15/20 07:42 BP 150/80 H 11/15/20 08:37 Pulse Ox 95 11/15/20 07:42 Weight - Most Recent: 129.274 kg I&O - Last 24 hours: Intake & Output 11/14/20 11/15/20 11/15/20 22:59 06:59 14:59 Intake Total 420 Output Total 100 Balance 320 Lab Results - Last 24 hrs: Laboratory Results - last 24 hr 11/14/20 11/14/20 11/15/20 Range/Units 11:39 17:46 00:11 WBC (4.5-11.0) K/uL RBC (3.30-5.50) M/uL Hgb (12.0-15.0) g/dL Hct (36.0-48.0) % MCV (80-98) fL MCH (27-31) pg MCHC (32-36) % Plt Count (150-400) K/uL Sodium (140-148) mmol/L Potassium (3.6-5.2) mmol/L Chloride (100-108) mmol/L Carbon Dioxide (21-32) mmol/L Anion Gap (5.0-14.0) mmol/L BUN (7-18) mg/dL Creatinine (0.6-1.0) mg/dL Est Cr Clr Drug Dosing mL/min Estimated GFR (MDRD) (>60) Glucose (74-106) mg/dL POC Glucose 173 H 146 H 152 H (74-106) mg/dL Calcium (8.5-10.1) mg/dL Total Bilirubin (0.2-1.0) mg/dL AST (15-37) U/L ALT (12-78) U/L Alkaline Phosphatase (46-116) U/L Total Protein (6.4-8.2) g/dL Albumin (3.4-5.0) g/dL Globulin (2.3-3.5) g/dL Albumin/Globulin Ratio (1.2-2.2) Lipase (73-393) U/L 11/15/20 11/15/20 11/15/20 Range/Units 04:32 04:32 05:59 WBC 18.4 H (4.5-11.0) K/uL RBC 4.55 (3.30-5.50) M/uL Hgb 12.3 (12.0-15.0) g/dL Hct 37.8 (36.0-48.0) % MCV 83 (80-98) fL MCH 27 (27-31) pg MCHC 33 (32-36) % Plt Count 231 (150-400) K/uL Sodium 134 L (140-148) mmol/L Potassium 3.4 L (3.6-5.2) mmol/L Chloride 98 L (100-108) mmol/L Carbon Dioxide 25 (21-32) mmol/L Anion Gap 14.4 H (5.0-14.0) mmol/L BUN 9 (7-18) mg/dL Creatinine 0.8 (0.6-1.0) mg/dL Est Cr Clr Drug Dosing 71.14 mL/min Estimated GFR (MDRD) > 60 (>60) Glucose 174 H (74-106) mg/dL POC Glucose 152 H (74-106) mg/dL Calcium 7.8 L (8.5-10.1) mg/dL Total Bilirubin 1.3 H (0.2-1.0) mg/dL AST 32 (15-37) U/L ALT 27 (12-78) U/L Alkaline Phosphatase 90 (46-116) U/L Total Protein 5.7 L (6.4-8.2) g/dL Albumin 2.5 L (3.4-5.0) g/dL Globulin 3.2 (2.3-3.5) g/dL Albumin/Globulin Ratio 0.8 L (1.2-2.2) Lipase 603 H (73-393) U/L Med Orders - Current: Current Medications Acetaminophen (Acetaminophen 325 Mg Tab) 650 mg PO Q4H PRN PRN Reason: Pain (Mild 1-3)/fever Last Admin: 11/14/20 14:43 Dose: 650 mg Documented by: Albuterol (Albuterol 0.083% 2.5 Mg/3 Ml Neb Soln) 2.5 mg NEB Q4H PRN PRN Reason: Shortness Of Breath/wheezing Calcium Carbonate/Glycine (Calcium Carbonate 500 Mg Tab.Chew) 500 mg PO Q2H PRN PRN Reason: Indigestion Last Admin: 11/15/20 05:50 Dose: 500 mg Documented by: Clonidine HCl (Clonidine 0.1 Mg Tab) 0.1 mg PO DAILY [facility] Last Admin: 11/15/20 08:37 Dose: 0.1 mg Documented by: Hydromorphone HCl (Hydromorphone 0.5 Mg/0.5 Ml Syringe) 0.5 mg IVPUSH Q2H PRN PRN Reason: Severe Pain Last Admin: 11/15/20 07:40 Dose: 0.5 mg Documented by: Insulin Human Lispro (Insulin Lispro 100 Unit/Ml 3 Ml Kwikpen) 0 unit SUBCUT Q6H [facility]; Protocol Last Admin: 11/15/20 06:03 Dose: Not Given Documented by: Lorazepam (Lorazepam 2 Mg/Ml Sdv) 1 mg IV Q6H PRN PRN Reason: Nausea/Vomiting Last Admin: 11/14/20 19:53 Dose: 1 mg Documented by: Metoclopramide HCl (Metoclopramide 10 Mg/2 Ml Sdv) 10 mg IVPUSH Q6H [facility] Last Admin: 11/15/20 04:27 Dose: 10 mg Documented by: Ondansetron HCl (Ondansetron 4 Mg/2 Ml Sdv) 4 mg IV Q4H PRN PRN Reason: Nausea/Vomiting Last Admin: 11/13/20 09:17 Dose: 4 mg Documented by: Pantoprazole Sodium (Pantoprazole 40 Mg Vial) 40 mg IV DAILY [facility] Last Admin: 11/15/20 08:38 Dose: 40 mg Documented by: Sodium Chloride (Sodium Chloride 0.9% 10 Ml Syringe) 10 ml FLUSH ASDIRECTED PRN PRN Reason: Keep Vein Open Last Admin: 11/12/20 20:57 Dose: 10 ml Documented by: Tizanidine HCl (Tizanidine 2 Mg Tab) 2 mg PO Q6H PRN PRN Reason: Spasms Last Admin: 11/15/20 04:24 Dose: 2 mg Documented by: Tramadol HCl (Tramadol 50 Mg Tab) 50 mg PO Q4H PRN PRN Reason: Pain Last Admin: 11/15/20 04:24 Dose: 50 mg Documented by: Trolamine Salicylate (Trolamine Salicylate/Aloe Vera 10% Crm 85 Gm Tube) 0 gm TOP Q2H PRN PRN Reason: back pain Last Admin: 11/14/20 21:34 Dose: 1 applic Documented by: Venlafaxine HCl (Venlafaxine 75 Mg Cap.Er) 150 mg PO DAILY [facility] Last Admin: 11/15/20 08:38 Dose: 150 mg Documented by: Zolpidem Tartrate (Zolpidem 5 Mg Tab) 5 mg PO BEDTIME [facility] Last Admin: 11/14/20 21:33 Dose: 5 mg Documented by: Discontinued Medications Cyclobenzaprine HCl (Cyclobenzaprine 10 Mg Tab) 10 mg PO Q8H PRN PRN Reason: Muscle Spasm - Painful Last Admin: 11/14/20 17:42 Dose: 10 mg Documented by: Hydromorphone HCl (Hydromorphone 1 Mg/Ml Syringe) 1 mg IVPUSH ONETIME ONE Stop: 11/12/20 21:51 Last Admin: 11/12/20 21:56 Dose: 1 mg Documented by: Hydromorphone HCl (Hydromorphone 0.5 Mg/0.5 Ml Syringe) 0.5 mg IVPUSH ONETIME ONE Stop: 11/12/20 22:25 Last Admin: 11/12/20 22:56 Dose: 0.5 mg Documented by: Hydromorphone HCl (Hydromorphone 1 Mg/Ml Syringe) 1 mg IVPUSH ONETIME ONE Stop: 11/13/20 00:17 Last Admin: 11/13/20 00:43 Dose: 1 mg Documented by: Hydromorphone HCl (Hydromorphone/Normal Saline 15 Mg/30 Ml Used [employer]) 0 mg IV ASDIRECTED PRN; Protocol PRN Reason: Pain Last Admin: 11/13/20 01:01 Dose: 15 mg Documented by: Hydromorphone HCl (Hydromorphone 1 Mg/Ml Syringe) 1 mg IVPUSH ONETIME ONE Stop: 11/13/20 09:49 Last Admin: 11/13/20 10:11 Dose: 1 mg Documented by: Hydroxyzine HCl (Hydroxyzine Hcl 100 Mg/2 Ml Sdv) 100 mg IM ONETIME ONE Stop: 11/13/20 17:58 Last Admin: 11/13/20 18:09 Dose: 100 mg Documented by: Sodium Chloride (Normal Saline) 1,000 mls @ 999 mls/hr IV ASDIRECTED [facility] Last Admin: 11/12/20 21:02 Dose: 999 mls/hr Documented by: Sodium Chloride (Normal Saline) 89 mls @ 3.5 mls/sec IV ASDIRECTED [facility] Last Admin: 11/12/20 22:18 Dose: 3.5 mls/sec Documented by: Sodium Chloride (Normal Saline) 1,000 mls @ 150 mls/hr IV ASDIRECTED [facility] Last Admin: 11/13/20 09:02 Dose: 150 mls/hr Documented by: Ceftazidime 1 gm/ Sodium (Chloride) 50 mls @ 100 mls/hr IV Q8H [facility] Last Admin: 11/13/20 10:11 Dose: 100 mls/hr Documented by: Metronidazole 500 mg/ Premix 100 mls @ 100 mls/hr IV Q8H [facility] Last Admin: 11/14/20 02:05 Dose: 100 mls/hr Documented by: Ceftazidime 1 gm/ Sodium (Chloride) 50 mls @ 100 mls/hr IV Q8HR [facility] Last Admin: 11/14/20 05:36 Dose: 100 mls/hr Documented by: Sodium Chloride (Normal Saline) 1,000 mls @ 100 mls/hr IV ASDIRECTED [facility] Last Admin: 11/13/20 19:18 Dose: 100 mls/hr Documented by: Iopamidol (Iopamidol 612 Mg/Ml 500 Ml Multipack Bottle) 150 ml IV ONETIME ONE Stop: 11/12/20 22:06 Last Admin: 11/12/20 22:18 Dose: 150 ml Documented by: Ketorolac Tromethamine (Ketorolac 30 Mg/Ml Sdv) 30 mg IVPUSH ONETIME ONE Stop: 11/12/20 20:48 Last Admin: 11/12/20 21:02 Dose: 30 mg Documented by: Lorazepam (Lorazepam 2 Mg/Ml Sdv) 1 mg IVPUSH ONETIME ONE Stop: 11/13/20 12:11 Last Admin: 11/13/20 12:10 Dose: 1 mg Documented by: Naloxone HCl (Naloxone 0.4 Mg/Ml Sdv) 0.4 mg IVPUSH Q2M PRN PRN Reason: Respiratory Distress Ondansetron HCl (Ondansetron 4 Mg/2 Ml Sdv) 4 mg IVPUSH ONETIME ONE Stop: 11/12/20 20:48 Last Admin: 11/12/20 21:02 Dose: 4 mg Documented by: Ondansetron HCl (Ondansetron 4 Mg/2 Ml Sdv) 4 mg IVPUSH ONETIME ONE Stop: 11/12/20 22:44 Last Admin: 11/12/20 22:56 Dose: 4 mg Documented by: Oxycodone HCl (Oxycodone 5 Mg Tab) 5 mg PO Q4H PRN PRN Reason: Pain (moderate 4-6) Sodium Chloride (Sodium Chloride 0.9% 10 Ml Syringe) 10 ml FLUSH ONETIME ONE Stop: 11/12/20 22:06 Last Admin: 11/12/20 22:18 Dose: 10 ml Documented by:
== END 2020-11-15 11:31 | disposition home or self-care (01) | DRG 439 ==
LOC: JP.ED 20:25 → JP.MS 23:26
PROVIDERS: ADMIT Internal Medicine; ATTEND Internal Medicine
DX: K85.10 Biliary acute pancreatitis without necrosis or infection (principal); Z68.43 Body mass index [BMI] 50.0-59.9, adult; E78.00 Pure hypercholesterolemia, unspecified; K80.80 Other cholelithiasis without obstruction; R73.01 Impaired fasting glucose; E66.01 Morbid (severe) obesity due to excess calories; H54.7 Unspecified visual loss; K21.9 Gastro-esophageal reflux disease without esophagitis; F41.9 Anxiety disorder, unspecified; F17.210 Nicotine dependence, cigarettes, uncomplicated; R73.9 Hyperglycemia, unspecified; F31.9 Bipolar disorder, unspecified; Z79.899 Other long term (current) drug therapy; Z88.8 Allergy status to other drugs, medicaments and biological substances; Z90.710 Acquired absence of both cervix and uterus
CPT/HCPCS: 36415; 74177; 74181; 74181-26; 80053; 80305-QW; 81001; 82150; 82947; 83036; 83605; 83690; 84478; 85025; 85027; 86140; 94762; 96374; 96375; 96376; 99285-25; A9270-GY; C9113; J0713; J1170; J1815; J1885; J2060; J2405; J2765; J3410; J3490; J7030; Q9967

== ENCOUNTER 2020-11-17 19:53 | Emergency (ER) | payer MEDICAID ==
[2020-11-17 21:21] VITALS: BP 168/105; PULSE 91
[2020-11-17] MEDS ORDERED: Morphine 2 MG/ML SYRINGE IVPUSH ONE (21:51)
[2020-11-17] MEDS ORDERED: Ondansetron 4 MG/2 ML SDV IVPUSH ONE (21:51)
--- NOTE | 2020-11-17 21:53 | EDM.PDOC ---
ED HPI GENERAL MEDICAL PROBLEM - General Chief Complaint: Abdominal Pain Stated Complaint: STOMACH PAIN WAS HERE ON WEDNESDAY Time Seen by Provider: 11/17/20 21:16 Source of Information: Reports: Patient History Limitations: Reports: No Limitations - History of Present Illness INITIAL COMMENTS - FREE TEXT/NARRATIVE: 50 yo presents to the ER with back pain, ABD pain and nausea. She was recently DCed from the hospital following pancreatitis with suspected cause gallstones. 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) Lower Back Pain Score (Numeric/FACES): 7 - Related Data Allergies Allergy/AdvReac Type Severity Reaction Status Date / Time lamotrigine [From Lamictal] Allergy Rash Verified 11/12/20 20:58 Home Meds: Home Meds cloNIDine [Catapres] 0.1 mg PO DAILY 09/29/13 [History] Omeprazole [Prilosec] 40 mg PO DAILY 12/20/13 [History] Venlafaxine HCl [Venlafaxine ER] 150 mg PO DAILY 10/22/15 [History] tiZANidine [Zanaflex] 2 mg PO Q6H PRN #20 tablet 11/15/20 [Rx] Past Medical History HEENT History: Reports: Impaired Vision Cardiovascular History: Reports: None Respiratory History: Reports: None Gastrointestinal History: Reports: GERD Genitourinary History: Reports: None 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: , Spontaneous Musculoskeletal History: Reports: None Neurological History: Reports: Headaches, Chronic Psychiatric History: Reports: Anxiety, Bipolar, Depression Endocrine/Metabolic History: Reports: Obesity/BMI 30+ Hematologic History: Reports: None Immunologic History: Reports: None Oncologic (Cancer) History: Reports: None Dermatologic History: Reports: Psoriasis - Infectious Disease History Infectious Disease History: Reports: Chicken Pox - Past Surgical History HEENT Surgical History: Reports: None Cardiovascular Surgical History: Reports: None Respiratory Surgical History: Reports: None GI Surgical History: Reports: None Female Surgical History: Reports: D&C, Hysterectomy Endocrine Surgical History: Reports: None Neurological Surgical History: Reports: None Musculoskeletal Surgical History: Reports: Arthroscopic Knee, Arthroscopic Procedure, Shoulder Surgery Oncologic Surgical History: Reports: None Dermatological Surgical History: Reports: None Social & Family History - Family History Family Medical History: No Pertinent Family History - Tobacco Use Tobacco Use Status *Q: Light Tobacco User Years of Tobacco use: 36 Packs/Tins Daily: 0.5 - Caffeine Use Caffeine Use: Reports: Coffee - Recreational Drug Use Recreational Drug Use: No - Living Situation & Occupation Living situation: Reports: with Significant Other (Lives with JUANITA Duenas, has 4 children.) Occupation: Unemployed ED ROS GENERAL - Review of Systems Review Of Systems: See Below Constitutional: Reports: Malaise, Weakness. Denies: Fever Respiratory: Denies: Shortness of Breath, Wheezing Cardiovascular: Denies: Chest Pain GI/Abdominal: Reports: Abdominal Pain, Decreased Appetite, Nausea. Denies: Diarrhea, Vomiting Skin: Denies: Rash Psychiatric: Denies: Anxiety ED EXAM, GI/ABD - Physical Exam Exam: See Below Exam Limited By: No Limitations General Appearance: Alert, WD/WN, No Apparent Distress Head: Atraumatic, Normocephalic Neck: Normal Inspection, Supple, Non-Tender. No: Lymphadenopathy (R), Lymphadenopathy (L) Respiratory/Chest: No Respiratory Distress, Lungs Clear, Normal Breath Sounds. No: Crackles, Rhonchi, Wheezing Cardiovascular: Regular Rate, Rhythm, No Murmur GI/Abdominal Exam: Normal Bowel Sounds, Soft, Tender (central and suprapubic). No: Guarding, Rigid Back Exam: Paraspinal Tenderness (lumbar tenderness) Neurological: Alert, Oriented, CN II-XII Intact Psychiatric: Normal Affect, Normal Mood Skin Exam: Warm, Dry, Intact, No Rash Course - Vital Signs Last Recorded V/S: Last Vital Signs Temp 36.6 C 11/17/20 21:19 Pulse 91 11/17/20 21:19 Resp 18 11/17/20 21:19 BP 168/105 H 11/17/20 21:19 Pulse Ox 97 11/17/20 21:19 - Orders/Labs/Meds Orders: Active Orders 24 hr Category Date Time Status Sodium Chloride 0.9% [Normal Saline] 1,000 ml Med 11/17/20 22:00 Active IV ASDIRECTED Sodium Chloride 0.9% [Normal Saline] 1,000 ml Med 11/17/20 23:45 Active IV ASDIRECTED Medication Orders Sodium Chloride (Normal Saline) 1,000 mls @ 999 mls/hr IV ASDIRECTED [facility] Last Admin: 11/17/20 22:28 Dose: 999 mls/hr Documented by: TUCKER Sodium Chloride (Normal Saline) 1,000 mls @ 999 mls/hr IV ASDIRECTED [facility] Last Admin: 11/17/20 23:42 Dose: 999 mls/hr Documented by: CARLA Labs: Laboratory Tests 11/17/20 11/17/20 11/17/20 Range/Units 21:46 21:59 21:59 WBC 11.8 H (4.5-11.0) K/uL RBC 4.24 (3.30-5.50) M/uL Hgb 11.5 L (12.0-15.0) g/dL Hct 34.8 L (36.0-48.0) % MCV 82 (80-98) fL MCH 27 (27-31) pg MCHC 33 (32-36) % Plt Count 273 (150-400) K/uL Neut % (Auto) 73.2 H (36-66) % Lymph % (Auto) 12.9 L (24-44) % Randall % (Auto) 11.9 H (2-6) % Eos % (Auto) 1.7 L (2-4) % Baso % (Auto) 0.3 (0-1) % Sodium (140-148) mmol/L Potassium (3.6-5.2) mmol/L Chloride (100-108) mmol/L Carbon Dioxide (21-32) mmol/L Anion Gap (5.0-14.0) mmol/L BUN (7-18) mg/dL Creatinine (0.6-1.0) mg/dL Est Cr Clr Drug Dosing mL/min Estimated GFR (MDRD) (>60) Glucose (74-106) mg/dL Calcium (8.5-10.1) mg/dL Total Bilirubin (0.2-1.0) mg/dL AST (15-37) U/L ALT (12-78) U/L Alkaline Phosphatase (46-116) U/L Total Protein (6.4-8.2) g/dL Albumin (3.4-5.0) g/dL Globulin (2.3-3.5) g/dL Albumin/Globulin Ratio (1.2-2.2) Lipase 132 (73-393) U/L Urine Color Yellow (YELLOW) Urine Appearance Clear (CLEAR) Urine pH 6.5 (5.0-8.0) Ur Specific Thornton 1.020 (1.008-1.030) Urine Protein 30 H (NEGATIVE) mg/dL Urine Glucose (UA) Negative (NEGATIVE) mg/dL Urine Ketones >=160 H (NEGATIVE) mg/dL Urine Occult Blood Trace-intact H (NEGATIVE) Urine Nitrite Negative (NEGATIVE) Urine Bilirubin Small H (NEGATIVE) Urine Urobilinogen 1.0 (0.2-1.0) EU/dL Ur Leukocyte Esterase Negative (NEGATIVE) Urine RBC 0-5 (0-5) Urine WBC 0-5 (0-5) Ur Epithelial Cells Few Amorphous Sediment Occasional Urine Bacteria Occasional Urine Mucus Occasional Urine Other See note 11/17/20 Range/Units 21:59 WBC (4.5-11.0) K/uL RBC (3.30-5.50) M/uL Hgb (12.0-15.0) g/dL Hct (36.0-48.0) % MCV (80-98) fL MCH (27-31) pg MCHC (32-36) % Plt Count (150-400) K/uL Neut % (Auto) (36-66) % Lymph % (Auto) (24-44) % Randall % (Auto) (2-6) % Eos % (Auto) (2-4) % Baso % (Auto) (0-1) % Sodium 138 L (140-148) mmol/L Potassium 3.3 L (3.6-5.2) mmol/L Chloride 99 L (100-108) mmol/L Carbon Dioxide 26 (21-32) mmol/L Anion Gap 16.3 H (5.0-14.0) mmol/L BUN 7 (7-18) mg/dL Creatinine 0.6 (0.6-1.0) mg/dL Est Cr Clr Drug Dosing 99.02 mL/min Estimated GFR (MDRD) > 60 (>60) Glucose 119 H (74-106) mg/dL Calcium 8.6 (8.5-10.1) mg/dL Total Bilirubin 0.7 (0.2-1.0) mg/dL AST 24 (15-37) U/L ALT 31 (12-78) U/L Alkaline Phosphatase 144 H (46-116) U/L Total Protein 6.2 L (6.4-8.2) g/dL Albumin 2.3 L (3.4-5.0) g/dL Globulin 3.9 H (2.3-3.5) g/dL Albumin/Globulin Ratio 0.6 L (1.2-2.2) Lipase (73-393) U/L Urine Color (YELLOW) Urine Appearance (CLEAR) Urine pH (5.0-8.0) Ur Specific Thornton (1.008-1.030) Urine Protein (NEGATIVE) mg/dL Urine Glucose (UA) (NEGATIVE) mg/dL Urine Ketones (NEGATIVE) mg/dL Urine Occult Blood (NEGATIVE) Urine Nitrite (NEGATIVE) Urine Bilirubin (NEGATIVE) Urine Urobilinogen (0.2-1.0) EU/dL Ur Leukocyte Esterase (NEGATIVE) Urine RBC (0-5) Urine WBC (0-5) Ur Epithelial Cells Amorphous Sediment Urine Bacteria Urine Mucus Urine Other Meds: Medications Generic Name Dose Route Start Last Admin Trade Name Tez PRN Reason Stop Dose Admin Sodium Chloride 1,000 mls @ 999 mls/hr 11/17/20 22:00 11/17/20 22:28 Normal Saline IV 999 mls/hr ASDIRECTED [facility] Administration Sodium Chloride 1,000 mls @ 999 mls/hr 11/17/20 23:45 11/17/20 23:42 Normal Saline IV 999 mls/hr ASDIRECTED [facility] Administration Discontinued Medications Generic Name Dose Route Start Last Admin Trade Name Charliq PRN Reason Stop Dose Admin Cyclobenzaprine HCl 10 mg 11/17/20 23:30 11/17/20 23:38 Cyclobenzaprine 10 Mg Tab PO 11/17/20 23:31 10 mg ONETIME ONE Administration Ketorolac Tromethamine 30 mg 11/17/20 23:30 11/17/20 23:38 Ketorolac 30 Mg/Ml Sdv IVPUSH 11/17/20 23:31 30 mg ONETIME ONE Administration Morphine Sulfate 2 mg 11/17/20 21:51 11/17/20 22:27 Morphine 2 Mg/Ml Syringe IVPUSH 11/17/20 21:52 2 mg ONETIME ONE Administration Ondansetron HCl 4 mg 11/17/20 21:51 11/17/20 22:27 Ondansetron 4 Mg/2 Ml Sdv IVPUSH 11/17/20 21:52 4 mg ONETIME ONE Administration - Re-Assessments/Exams Free Text/Narrative Re-Assessment/Exam: 11/18/20 00:00 lipase has return to normal. Liver function is the same as at discharge. She has follow-up with surgeon scheduled. UA high ketones she did receive 2 liters IV fluids. back pain improved with muscle relaxer and Ketoralac Departure - Departure Time of Disposition: 00:02 Disposition: Home, Self-Care 01 Condition: Good Clinical Impression: Hypercholesteremia, Morbid obesity with BMI of 50.0-59.9, adult, Lumbar back pain Cholelithiasis Qualifiers: Cholelithiasis location: other site Biliary obstruction: without biliary obstruction Qualified Code(s): K80.80 - Other cholelithiasis without obstruction - Discharge Information *PRESCRIPTION DRUG MONITORING PROGRAM REVIEWED*: Not Applicable *COPY OF PRESCRIPTION DRUG MONITORING REPORT IN PATIENT SHARLENE: Not Applicable Instructions: Chronic Back Pain, [id number] Referrals: PCP,None [Primary Care Provider] - Forms: ED Department Discharge Additional Instructions: keep post hospital follow-up appointments and instructions back pain Ibuprofen 400-600 mg every 6 hours for pain cyclobenzaprine up to twice daily for muscle spasms in your back Sepsis Event Note (ED) - Focused Exam Vital Signs: Vital Signs Temp Pulse Resp BP Pulse Ox 11/17/20 21:19 36.6 C 91 18 168/105 H 97 - My Orders Last 24 Hours: My Active Orders 11/17/20 22:00 Sodium Chloride 0.9% [Normal Saline] 1,000 ml IV ASDIRECTED 11/17/20 23:45 Sodium Chloride 0.9% [Normal Saline] 1,000 ml IV ASDIRECTED - Assessment/Plan Last 24 Hours: My Active Orders 11/17/20 22:00 Sodium Chloride 0.9% [Normal Saline] 1,000 ml IV ASDIRECTED 11/17/20 23:45 Sodium Chloride 0.9% [Normal Saline] 1,000 ml IV ASDIRECTED
[2020-11-17] MEDS ORDERED: Sodium Chloride 0.9% 1,000 ML IV SCH ×2 (22:00→23:45)
[2020-11-17] MEDS ORDERED: Ketorolac 30 MG/ML SDV IVPUSH ONE (23:30)
[2020-11-17] MEDS ORDERED: Cyclobenzaprine 10 MG Tab PO ONE (23:30)
== END 2020-11-18 01:18 | disposition home or self-care (01) ==
LOC: JP.ED 19:53
DX: M54.5 Low back pain (principal); E78.00 Pure hypercholesterolemia, unspecified; K21.9 Gastro-esophageal reflux disease without esophagitis; E66.01 Morbid (severe) obesity due to excess calories; Z68.43 Body mass index [BMI] 50.0-59.9, adult; Z79.899 Other long term (current) drug therapy; Z88.8 Allergy status to other drugs, medicaments and biological substances; Z72.0 Tobacco use
CPT/HCPCS: 36415; 80053; 81001; 83690; 85025; 96374; 96375; 99284; A9270; J1885; J2270; J2405; J7030

== ENCOUNTER 2020-12-09 18:16 | Emergency (ER) | payer MEDICAID ==
[2020-12-09 18:45] VITALS: BP 135/87; PULSE 111
[2020-12-09] MEDS ORDERED: Sodium Chloride 0.9% 1,000 ML IV SCH (18:45)
--- NOTE | 2020-12-09 18:47 | EDM.PDOC ---
ED HPI GENERAL MEDICAL PROBLEM - General Chief Complaint: Wound Recheck Stated Complaint: POST SURGERY INFECTION? Time Seen by Provider: 12/09/20 18:28 Source of Information: Reports: Patient History Limitations: Reports: No Limitations - History of Present Illness INITIAL COMMENTS - FREE TEXT/NARRATIVE: 50 yo female presents to ER with ABD wound dehiscence. upper ABD incision from her laparoscopic cholecystectomy has been red and irritated for the last 4-5 days, she has also had upper ABD pain along with nausea and chills. today while she was cleansing wound in the shower it opened and large amounts of purulent drainage expelled. She had surgery on 12/30 in [place] and does have follow-up scheduled tomorrow with her surgeon. Abdomen Pain Score (Numeric/FACES): 3 - Related Data Allergies Allergy/AdvReac Type Severity Reaction Status Date / Time lamotrigine [From Lamictal] Allergy Rash Verified 12/09/20 18:37 Home Meds: Home Meds cloNIDine [Catapres] 0.1 mg PO DAILY 09/29/13 [History] Omeprazole [Prilosec] 40 mg PO DAILY 12/20/13 [History] Venlafaxine HCl [Venlafaxine ER] 150 mg PO DAILY 10/22/15 [History] Propranolol [Inderal] 20 mg PO DAILY 12/09/20 [History] clonazePAM [Clonazepam] 1 mg PO ASDIRECTED 12/09/20 [History] Past Medical History HEENT History: Reports: Impaired Vision Cardiovascular History: Reports: None Respiratory History: Reports: None Gastrointestinal History: Reports: GERD Genitourinary History: Reports: None BONE TENDER History: Reports: , Spontaneous Musculoskeletal History: Reports: None Neurological History: Reports: Headaches, Chronic Psychiatric History: Reports: Anxiety, Bipolar, Depression Endocrine/Metabolic History: Reports: Obesity/BMI 30+ Hematologic History: Reports: None Immunologic History: Reports: None Oncologic (Cancer) History: Reports: None Dermatologic History: Reports: Psoriasis - Infectious Disease History Infectious Disease History: Reports: Chicken Pox - Past Surgical History HEENT Surgical History: Reports: None Cardiovascular Surgical History: Reports: None Respiratory Surgical History: Reports: None GI Surgical History: Reports: None Female Surgical History: Reports: D&C, Hysterectomy Endocrine Surgical History: Reports: None Neurological Surgical History: Reports: None Musculoskeletal Surgical History: Reports: Arthroscopic Knee, Arthroscopic Procedure, Shoulder Surgery Oncologic Surgical History: Reports: None Dermatological Surgical History: Reports: None Social & Family History - Family History Family Medical History: No Pertinent Family History - Caffeine Use Caffeine Use: Reports: Coffee - Living Situation & Occupation Living situation: Reports: with Significant Other (Lives with JUANITA Duenas, has 4 children.) Occupation: Unemployed ED ROS GENERAL - Review of Systems Review Of Systems: See Below Constitutional: Reports: Fever, Chills, Fatigue Respiratory: Denies: Shortness of Breath, Wheezing Cardiovascular: Denies: Chest Pain GI/Abdominal: Reports: Abdominal Pain, Nausea. Denies: Vomiting ED EXAM, GI/ABD - Physical Exam Exam: See Below Exam Limited By: No Limitations General Appearance: Alert, WD/WN, No Apparent Distress Cardiovascular: No Murmur, Tachycardia GI/Abdominal Exam: Soft, Other (7 cm diameter around the upper incision indurated and moderatly erythemic purulent discharge ) Course - Vital Signs Last Recorded V/S: Last Vital Signs Temp 36.4 C 12/09/20 18:33 Pulse 111 H 12/09/20 18:33 Resp 18 12/09/20 18:33 BP 135/87 12/09/20 18:33 Pulse Ox 96 12/09/20 18:33 - Orders/Labs/Meds Orders: Active Orders 24 hr Category Date Time Status CULTURE BLOOD [BC] Urgent Lab 12/09/20 18:45 Received CULTURE BLOOD [BC] Urgent Lab 12/09/20 18:56 Received CULTURE WOUND + SMEAR [RM] Stat Lab 12/09/20 18:43 Results Iopamidol [Isovue-300 (61%)] Med 12/09/20 19:46 Active 150 ml IV . DIRECTED PRN Sodium Chloride 0.9% [Normal Saline] 1,000 ml Med 12/09/20 18:45 Active IV ASDIRECTED Sodium Chloride 0.9% [Normal Saline] 100 ml Med 12/09/20 20:00 Active IV ASDIRECTED cefTRIAXone [Rocephin] 1 gm Med 12/09/20 21:54 Ordered Sodium Chloride 0.9% [Normal Saline] 50 ml IV ONETIME Blood Culture x2 Reflex Set [OM.PC] Urgent Oth 12/09/20 18:36 Ordered Medication Orders Sodium Chloride (Normal Saline) 1,000 mls @ 125 mls/hr IV ASDIRECTED LIMA Last Admin: 12/09/20 18:57 Dose: 125 mls/hr Documented by: [email or web address] Sodium Chloride (Normal Saline) 100 mls @ 3 mls/min IV ASDIRECTED LIMA Last Admin: 12/09/20 20:02 Dose: 3 mls/min Documented by: STACMAG Iopamidol (Iopamidol 612 Mg/Ml 150 Ml Bottle) 150 ml IV . DIRECTED PRN PRN Reason: RADIOLOGY EXAM Stop: 12/10/20 19:47 Last Admin: 12/09/20 20:02 Dose: 150 ml Documented by: STACMAG Labs: Laboratory Tests 12/09/20 12/09/20 12/09/20 Range/Units 18:45 18:45 18:45 WBC 8.6 (4.5-11.0) K/uL RBC 4.57 (3.30-5.50) M/uL Hgb 12.1 (12.0-15.0) g/dL Hct 37.2 (36.0-48.0) % MCV 81 (80-98) fL MCH 27 (27-31) pg MCHC 33 (32-36) % Plt Count 356 (150-400) K/uL Neut % (Auto) 58.6 (36-66) % Lymph % (Auto) 25.3 (24-44) % [place] % (Auto) 14.2 H (2-6) % Eos % (Auto) 1.5 L (2-4) % Baso % (Auto) 0.4 (0-1) % Sodium 137 L (140-148) mmol/L Potassium 3.6 (3.6-5.2) mmol/L Chloride 100 (100-108) mmol/L Carbon Dioxide 26 (21-32) mmol/L Anion Gap 14.6 H (5.0-14.0) mmol/L BUN 7 (7-18) mg/dL Creatinine 0.8 (0.6-1.0) mg/dL Est Cr Clr Drug Dosing 71.14 mL/min Estimated GFR (MDRD) > 60 (>60) Glucose 114 H (74-106) mg/dL Lactic Acid 1.2 (0.4-2.0) mmol/L Calcium 9.3 (8.5-10.1) mg/dL Total Bilirubin 0.5 (0.2-1.0) mg/dL AST 21 (15-37) U/L ALT 34 (12-78) U/L Alkaline Phosphatase 147 H (46-116) U/L C-Reactive Protein 13.47 H (0.0-0.3) mg/dL Total Protein 6.6 (6.4-8.2) g/dL Albumin 2.4 L (3.4-5.0) g/dL Globulin 4.2 H (2.3-3.5) g/dL Albumin/Globulin Ratio 0.6 L (1.2-2.2) Meds: Medications Generic Name Dose Route Start Last Admin Trade Name Freq PRN Reason Stop Dose Admin Sodium Chloride 1,000 mls @ 125 mls/hr 12/09/20 18:45 12/09/20 18:57 Normal Saline IV 125 mls/hr ASDIRECTED LIMA Administration Sodium Chloride 100 mls @ 3 mls/min 12/09/20 20:00 12/09/20 20:02 Normal Saline IV 3 mls/min ASDIRECTED LIMA Administration Iopamidol 150 ml 12/09/20 19:46 12/09/20 20:02 Iopamidol 612 Mg/Ml 150 Ml Bottle IV 12/10/20 19:47 150 ml . DIRECTED PRN Administration RADIOLOGY EXAM Discontinued Medications Generic Name Dose Route Start Last Admin Trade Name Freq PRN Reason Stop Dose Admin Sodium Chloride 10 ml 12/09/20 19:46 12/09/20 20:02 Sodium Chloride 0.9% 10 Ml Sdv FLUSH 12/09/20 19:47 10 ml ONETIME ONE Administration - Re-Assessments/Exams Free Text/Narrative Re-Assessment/Exam: 12/09/20 21:55 CT scan indicated 8x3 cm fluid collection that has continued to drain throughout visit. wound gram stain indicates gram + cocci. given 1 Gram of rocephin. she has appt scheduled for tomorrow with her surgeon. She is afebrile Departure - Departure Time of Disposition: 21:57 Disposition: Home, Self-Care 01 Condition: Good Clinical Impression: Post surgical complication Qualifiers: Surgical complication system/body Area: skin Surgical complication type: unspecified Procedure type: dermatologic Qualified Code(s): L76.82 - Other postprocedural complications of skin and subcutaneous tissue - Discharge Information *PRESCRIPTION DRUG MONITORING PROGRAM REVIEWED*: Not Applicable *COPY OF PRESCRIPTION DRUG MONITORING REPORT IN PATIENT SHARLENE: Not Applicable Instructions: Skin Abscess, [id number] Referrals: PCP,None [Primary Care Provider] - Forms: ED Department Discharge Additional Instructions: WBC 8.6 and Lactic 1.2 both of these are normal values CRP is elevated at 13.47 Wound gram stain - numerous gram positive cocci wound culture pending Sepsis Event Note (ED) - Evaluation Sepsis Screening Result: Possible Sepsis Risk - Focused Exam Vital Signs: Vital Signs Temp Pulse Resp BP Pulse Ox 12/09/20 18:33 36.4 C 111 H 18 135/87 96 12/09/20 18:29 36.4 C 111 H 18 135/87 96 - My Orders Last 24 Hours: My Active Orders 12/09/20 18:36 Blood Culture x2 Reflex Set [OM.PC] Urgent 12/09/20 18:43 CULTURE WOUND + SMEAR [RM] Stat 12/09/20 18:45 CULTURE BLOOD [BC] Urgent Sodium Chloride 0.9% [Normal Saline] 1,000 ml IV ASDIRECTED 12/09/20 18:56 CULTURE BLOOD [BC] Urgent 12/09/20 19:46 Iopamidol [Isovue-300 (61%)] 150 ml IV . DIRECTED PRN 12/09/20 20:00 Sodium Chloride 0.9% [Normal Saline] 100 ml IV ASDIRECTED 12/09/20 21:54 cefTRIAXone [Rocephin] 1 gm Sodium Chloride 0.9% [Normal Saline] 50 ml IV ONETIME - Assessment/Plan Last 24 Hours: My Active Orders 12/09/20 18:36 Blood Culture x2 Reflex Set [OM.PC] Urgent 12/09/20 18:43 CULTURE WOUND + SMEAR [RM] Stat 12/09/20 18:45 CULTURE BLOOD [BC] Urgent Sodium Chloride 0.9% [Normal Saline] 1,000 ml IV ASDIRECTED 12/09/20 18:56 CULTURE BLOOD [BC] Urgent 12/09/20 19:46 Iopamidol [Isovue-300 (61%)] 150 ml IV . DIRECTED PRN 12/09/20 20:00 Sodium Chloride 0.9% [Normal Saline] 100 ml IV ASDIRECTED 12/09/20 21:54 cefTRIAXone [Rocephin] 1 gm Sodium Chloride 0.9% [Normal Saline] 50 ml IV ONETIME
[2020-12-09] MEDS ORDERED: Iopamidol 612 MG/ML 150 ML Bottle IV PRN (19:46)
[2020-12-09] MEDS ORDERED: Sodium Chloride 0.9% 10 ML SDV FLUSH ONE (19:46)
[2020-12-09] MEDS ORDERED: Sodium Chloride 0.9% 100 ML IV SCH (20:00)
--- NOTE | 2020-12-09 20:43 | CRLCT ---
For Patients: As a result of the Century Cures Act, medical imaging exams and procedure reports are released immediately into your electronic medical record. You may view this report before your referring provider. If you have questions, please contact your health care provider. INDICATION: Pancreatitis. Postsurgical abscess. TECHNIQUE: CT abdomen acquired with 150 cc Isovue-300 IV contrast. COMPARISON: November 12, 2020. FINDINGS: Lower chest: Unremarkable. Liver: Unremarkable. Normal in size and attenuation. No suspicious masses. Gallbladder and bile ducts: Post cholecystectomy. No biliary dilatation. Pancreas: Interval worsening of peripancreatic edema/inflammation with multiple new peripancreatic fluid collections consistent with pseudocysts. Spleen: Unremarkable. Normal in size. No masses. Adrenal glands: Unremarkable. No nodules. Kidneys: Unremarkable. No suspicious masses, stones, or hydronephrosis. GI tract: Visualized GI tract is unremarkable. Normal appendix. Vasculature: Unremarkable. Mesenteric arteries are patent. Lymph nodes: No lymphadenopathy. Omentum/Peritoneum/Abdominal Wall: In the anterior abdominal wall to the right of midline is an ill-defined fluid collection measuring 8 x 3 cm with adjacent edema. This fluid and edema extends into the skin surface in the midline where there is also thickening of the skin. Bones: Unremarkable for age. IMPRESSION: 1. New 8 x 3 cm ill-defined fluid collection in the right anterior abdominal wall consistent with a postoperative seroma and/or abscess. 2. Interval worsening of pancreatitis with multiple new peripancreatic pseudocysts present. 3. No other acute findings. Please note that all CT scans at this facility use dose modulation, iterative reconstruction, and/or weight-based dosing when appropriate to reduce radiation dose to as low as reasonably achievable. Dictated by Avery Martinez MD @ 12/09/2020 8:41:08 PM (Electronically Signed)
[2020-12-09] MEDS ORDERED: cefTRIAXone 1 GM in Sodium Chloride 0.9% 50 ML IV ONE (21:54)
== END 2020-12-09 22:39 | disposition home or self-care (01) ==
LOC: JP.ED 18:16
DX: L76.82 Other postprocedural complications of skin and subcutaneous tissue (principal); K21.9 Gastro-esophageal reflux disease without esophagitis; E66.9 Obesity, unspecified; Z68.42 Body mass index [BMI] 45.0-49.9, adult; Z88.8 Allergy status to other drugs, medicaments and biological substances; Z79.899 Other long term (current) drug therapy
CPT/HCPCS: 36415; 74160; 80053; 83605; 85025; 86140; 87040; 87070; 87077; 87186; 87205; 96365; 99284; J0696; J7030; Q9967

== ENCOUNTER 2022-01-04 11:02 | Emergency (ER) | payer MEDICAID ==
[2022-01-04] MEDS ORDERED: Sodium Chloride 0.9% 10 ML Syringe FLUSH PRN (11:05)
[2022-01-04 11:46] LABS: TROPONIN I HIGH SENSITIVITY 4.2 pg/mL (<=60.3)
[2022-01-04 13:25] VITALS: BP 123/89; PULSE 71
== END 2022-01-04 14:04 | disposition home or self-care (01) ==
LOC: JP.ED 11:02
DX: R07.89 Other chest pain (principal); I10 Essential (primary) hypertension; E66.01 Morbid (severe) obesity due to excess calories; Z68.43 Body mass index [BMI] 50.0-59.9, adult; Z88.8 Allergy status to other drugs, medicaments and biological substances; Z79.899 Other long term (current) drug therapy; Z90.710 Acquired absence of both cervix and uterus
CPT/HCPCS: 36415; 71045; 80048; 83880; 84443; 84484; 85025; 93005; 93010; 99284; 99285; J3490

== ENCOUNTER 2022-03-07 00:22 | Emergency (ER) | payer MEDICAID ==
[2022-03-07 01:04] VITALS: BP 140/80; PULSE 86
[2022-03-07] MEDS ORDERED: Albuterol/Ipratropium 3.0-0.5 MG/3 ML Neb Soln NEB ONE (01:10)
[2022-03-07] MEDS ORDERED: Sodium Chloride 0.9% 10 ML Syringe FLUSH PRN (01:13)
[2022-03-07] MEDS ORDERED: methylPREDNISolone Sodium Succinate 125 MG/2 ML SDV IVPUSH ONE (01:13)
== END 2022-03-07 02:10 | disposition home or self-care (01) ==
LOC: JP.ED 00:22
DX: J21.0 Acute bronchiolitis due to respiratory syncytial virus (principal); K21.9 Gastro-esophageal reflux disease without esophagitis; E66.9 Obesity, unspecified; Z68.42 Body mass index [BMI] 45.0-49.9, adult; Z88.8 Allergy status to other drugs, medicaments and biological substances; Z79.899 Other long term (current) drug therapy
CPT/HCPCS: 94640; 96374; 99284; J2930; J3490; J7620